=== PATIENT | female | born 1980 | race Caucasian/White ===

== ENCOUNTER 2016-11-26 10:12 | Inpatient (IN) | payer BC ==
[~2016-11-26] VITALS: Ht 154.9 cm; Wt 63.5 kg
[2016-11-26 10:50] VITALS: BP 118/71
[2016-11-26] MEDS ORDERED: NKM (10:52)
[2016-11-26 13:17] LABS: ALANINE AMINOTRANSFERASE 47 U/L (3-33); ALBUMIN/GLOBULIN RATIO 1.2 (1.0-2.7); ANION GAP 16 (5-15); ASPARTATE AMINO TRANSFERASE 17 U/L (5-40); CALCIUM 9.6 mg/dL (8.6-10.2); CARBON DIOXIDE 24 mEQ/L (20-30); CHLORIDE 99 mEQ/L (98-107); CREATININE 0.6 mg/dL (0.5-0.9); GLOMERULAR FILTRATION RATE > 60 mL/min (>60); HEMOLYSIS 1; POTASSIUM 4.2 mEQ/L (3.4-4.9); SODIUM 139 mEQ/L (135-145); TOTAL PROTEIN 7.5 g/dL (6.6-8.7)
[2016-11-26 13:24] LABS: APPEARANCE,URINE CLEAR; BASOPHILS % (AUTO) 1.5 % (0.0-2.0); EOSINOPHILS % (AUTO) 1.5 % (0.0-3.0); KETONES,URINE NEGATIVE (NEGATIVE); LEUKOCYTE ESTERASE ,URINE NEGATIVE (NEGATIVE); MEAN CORPUSCULAR HEMOGLOBIN 32.4 PG (27.0-31.0); MEAN CORPUSCULAR HGB CONC 33.3 G/DL (32.0-36.0); MEAN CORPUSCULAR VOLUME 97 FL (80-99); MEAN PLATELET VOLUME 5.3 FL (6.5-10.1); MONOCYTES % (AUTO) 6.1 % (1.0-10.0); NITRITE,URINE NEGATIVE (NEGATIVE); PH,URINE 6.5 (4.5-8.0); PLATELET COUNT 625 K/UL (150-450); PROTEIN,URINE NEGATIVE (NEGATIVE); RED BLOOD COUNT 3.84 M/UL (4.20-5.40); RED CELL DISTRIBUTION WIDTH 11.2 % (11.6-14.8); UROBILINOGEN,URINE NORMAL MG/DL (0.0-1.0); WHITE BLOOD COUNT 15.1 K/UL (4.8-10.8)
--- NOTE | 2016-11-26 13:25 | Emergency Room Report ---
History of Present Illness General Chief Complaint: General Complaint Source: Patient Present Illness HPI 36 Y[address] of [address] Martines sent for pre-op prep for operation tomorrow to evaluate left inner thigh/groin wound dehiscence s/p thigh lift, tummy tuck on Nov 14. Patient endorses "small" amount of pus, denies fever/chills. Was told by Dr Rocha to come to [facility] [place]. Dr Cook to admit. Patient denies other medical problems. Allergies: Coded Allergies: No Known Allergies (Unverified , 11/26/16) Patient History Past Medical History: none Past Surgical History: none, other - see HPI Pertinent Family History: none Social History: Denies: alcohol use, drug use, smoking Last Menstrual Period: 11/04/2016 Now: No Immunizations: UTD Reviewed Nursing Documentation: PMH: Agreed, PSxH: Agreed Nursing Documentation-PMH Past Medical History: No History, Except For Review of Systems All Other Systems: negative except mentioned in HPI Physical Exam Vital Signs Date Time Temp Pulse Resp B/P Pulse Ox O2 Delivery O2 Flow Rate FiO2 11/26/16 10:46 98.6 68 16 118/71 98 Room Air Sp02 EP Interpretation: reviewed, normal General Appearance: normal inspection, well appearing, no apparent distress, alert, GCS 15, non-toxic Head: normocephalic, atraumatic Eyes: bilateral eye EOMI, bilateral eye PERRL ENT: normal ENT inspection, hearing grossly normal, normal voice Neck: normal inspection, full range of motion, supple, no bony tend Respiratory: normal inspection, lungs clear, normal breath sounds, no respiratory distress, no retraction, no wheezing Cardiovascular #1: regular rate, rhythm, no edema Gastrointestinal: normal inspection, normal bowel sounds, non tender, soft, no guarding, no hernia Genitourinary: no CVA tenderness Musculoskeletal: normal inspection, back normal, normal range of motion, Royal' s Sign negative Neurologic: normal inspection, alert, oriented x3, responsive, paper coater III-XII nml as tested, motor strength/tone normal, speech normal Psychiatric: normal inspection, judgement/insight normal, mood/affect normal Skin: other - Left groin: dehiscence of surgical site. No obvious pus drainage. Suprapubic area and right groin surgical scars with healing well, no dehiscence of sutures Medical Decision Making Diagnostic Impression: Primary Impression: Wound dehiscence, surgical Qualified Codes: T81.31XA - Disruption of external operation (surgical) wound , not elsewhere classified, initial encounter ER Course 36 YOF here for medical clearance/pre-op prep for left groin surgical scar wound dehiscence. VSS. Afebrile. No systemic illness Labs: Leuks 15k Abx Vanc and Rocephin given empirically Blood Cx pending Endorsed to hospitalist Dr Cook at 124pm for med/surg admission Last Vital Signs Date Time Temp Pulse Resp B/P Pulse Ox O2 Delivery O2 Flow Rate FiO2 11/26/16 10:46 98.6 68 16 118/71 98 Room Air Status: improved Disposition: ADMITTED INPATIENT Referrals: NON PHYSICIAN (PCP) GAIL REAGAN M.D. Nov 26, 2016 13:25
[2016-11-26 13:27] LABS: CKMB < 1.5 ng/mL (< 3.8)
[2016-11-26 13:34] LABS: INR 1.1 (0.9-1.1); PROTHROMBIN TIME 10.8 SEC (9.30-11.50)
--- NOTE | 2016-11-26 13:57 | Diagnostic Imaging Report ---
Indication: Chest pain Technique: One view of the chest Comparison: none Findings: Lungs and pleural spaces are clear. Heart size is normal. Impression: No acute process
[2016-11-26] MEDS ORDERED: Vancomycin 1 GM in NS 275 ML IVPB ONE (14:00)
[2016-11-26] MEDS ORDERED: cefTRIAXone 1 GM in NS 55 ML IVPB ONE (14:00)
[2016-11-26] MEDS ORDERED: Vancomycin 1gm inj IVPB ONE (14:07)
[2016-11-26] MEDS ORDERED: NS 55 ML IV ONE (14:08)
[2016-11-26] MEDS ORDERED: Tubing IV Cassette IV ONE (14:08)
[2016-11-26] MEDS ORDERED: NS 275 ML ONE (14:08)
[2016-11-26] MEDS ORDERED: Miralax 17gm pkt ORAL PRN (14:15)
[2016-11-26] MEDS ORDERED: Mylanta II UD 30ml ORAL PRN (14:15)
[2016-11-26] MEDS ORDERED: Morphine Sulfate 4mg/ml Inj IVP PRN (14:15)
[2016-11-26] MEDS ORDERED: Morphine Sulfate 2mg/ml Inj IVP PRN (14:15)
[2016-11-26] MEDS ORDERED: LORazepam 1mg tab ORAL PRN (14:15)
--- NOTE | 2016-11-26 14:19 | History and Physical ---
History of Present Illness General Date patient seen: Nov 26, 2016 Time patient seen: 14:09 Reason for Hospitalization: General Complaint Present Illness HPI 36 y/o female with hx of recent plastic surgery (tummy tuck and thigh lift) more than a week ago, had been doing well until last night, when she noticed her surgical wound had opened. No fevers/chills, however has considerable pain, and unable to treat the pain at home. She notified her surgeon who told her to go to the ED. She is able to run miles without chest pain or dyspnea, no complications from her recent surgeries. Allergies: Coded Allergies: No Known Allergies (Unverified , 11/26/16) Medication History Scheduled No Known Medications* (NKM - No Known Medications*), 0 ., (Reported) Patient History History Provided By: Patient Healthcare decision maker Resuscitation status Advanced Directive on File Social History Social History: (1) No significant social history (2) Family history in first degree relatives is unremarkable Review of Systems Constitutional: Denies: chills, fever, malaise, no symptoms, other, see HPI, sweats, weakness Eye: Denies: acuity changes, blurred vision, discharge, double vision, eye pain , no symptoms, nose congestion, nose pain, other, see HPI, tearing ENT: Denies: ear discharge, ear pain, hearing loss, mouth pain, nasal discharge , no symptoms, nose congestion, nose pain, other, see HPI, throat pain, throat swelling Respiratory: Denies: TURNER, cough, no symptoms, orthopnea, other, see HPI, shortness of breath, sputum, stridor, wheezing Cardiovascular: Denies: PND, chest pain, edema, no symptoms, other, palpitations, see HPI, syncope Gastrointestinal: Denies: abdominal pain, constipation, diarrhea, hematemesis, melena, nausea, no symptoms, other, see HPI, vomiting Genitourinary: Reports: pain Musculoskeletal: Reports: muscle pain Skin: Reports: lesions Psychiatric: Denies: HI, SI, anxiety, depressed feelings, emotional problems, hallucinations, no symptoms, other, prior hx, see HPI Neurological: Denies: dizziness, focal weakness, headache, no symptoms, numbness, other, paresthesia, see HPI, seizure, syncope, tingling, tremors Endocrine: Denies: excessive sweating, flushing, increased thirst, increased urine, intolerance to temperature, no symptoms, other, see HPI, unexplained weight loss Hematologic/Lymphatic: Denies: anemia, blood clots, diathesis, easy bleeding, easy bruising, no symptoms, other, see HPI, swollen glands Physical Exam General Appearance: WD/WN, no apparent distress, alert Lines, tubes and drains: peripheral HEENT: normocephalic, atraumatic, anicteric, mucous membranes moist Neck: non-tender, normal alignment, supple, normal inspection Respiratory/Chest: chest wall non-tender, lungs clear, normal breath sounds, no respiratory distress, no accessory muscle use Cardiovascular/Chest: normal peripheral pulses, normal rate, regular rhythm, no gallop/murmur Abdomen: normal bowel sounds, non tender, soft Extremities: other - large wound on upper L thigh Skin Exam: normal pigmentation, warm/dry Neurologic: alert, oriented x 3, responsive, normal mood/affect Last 24 Hour Vital Signs Date Time Temp Pulse Resp B/P Pulse Ox O2 Delivery O2 Flow Rate FiO2 11/26/16 10:46 98.6 68 16 118/71 98 Room Air Laboratory Tests Test 11/26/16 11:35 White Blood Count 15.1 K/UL (4.8-10.8) H Red Blood Count 3.84 M/UL (4.20-5.40) L Hemoglobin 12.4 G/DL (12.0-16.0) Hematocrit 37.4 % (37.0-47.0) Mean Corpuscular Volume 97 FL (80-99) Mean Corpuscular Hemoglobin 32.4 PG (27.0-31.0) H Mean Corpuscular Hemoglobin Concent 33.3 G/DL (32.0-36.0) Red Cell Distribution Width 11.2 % (11.6-14.8) L Platelet Count 625 K/UL (150-450) H Mean Platelet Volume 5.3 FL (6.5-10.1) L Neutrophils (%) (Auto) 75.0 % (45.0-75.0) Lymphocytes (%) (Auto) 16.0 % (20.0-45.0) L Monocytes (%) (Auto) 6.1 % (1.0-10.0) Eosinophils (%) (Auto) 1.5 % (0.0-3.0) Basophils (%) (Auto) 1.5 % (0.0-2.0) Prothrombin Time 10.8 SEC (9.30-11.50) Prothromb Time International Ratio 1.1 (0.9-1.1) Activated Partial Thromboplast Time 26 SEC (23-33) Urine Color Pale yellow Urine Appearance Clear Urine pH 6.5 (4.5-8.0) Urine Specific [place] 1.005 (1.005-1.035) Urine Protein Negative (NEGATIVE) Urine Glucose (UA) Negative (NEGATIVE) Urine Ketones Negative (NEGATIVE) Urine Occult Blood Negative (NEGATIVE) Urine Nitrite Negative (NEGATIVE) Urine Bilirubin Negative (NEGATIVE) Urine Urobilinogen Normal MG/DL (0.0-1.0) Urine Leukocyte Esterase Negative (NEGATIVE) Urine HCG, Qualitative Negative Sodium Level 139 mEQ/L (135-145) Potassium Level 4.2 mEQ/L (3.4-4.9) Chloride Level 99 mEQ/L (98-107) Carbon Dioxide Level 24 mEQ/L (20-30) Anion Gap 16 (5-15) H Blood Urea Nitrogen 16 mg/dL (7-23) Creatinine 0.6 mg/dL (0.5-0.9) Estimat Glomerular Filtration Rate > 60 mL/min (>60) Glucose Level 97 mg/dL (74-106) Lactic Acid Level 0.50 mmol/L (0.66-2.22) L Calcium Level 9.6 mg/dL (8.6-10.2) Total Bilirubin 0.3 mg/dL (0.0-1.2) Aspartate Amino Transf (AST/SGOT) 17 U/L (5-40) Alanine Aminotransferase (ALT/SGPT) 47 U/L (3-33) H Alkaline Phosphatase 87 U/L (35-104) Creatine Kinase MB < 1.5 ng/mL (< 3.8) Total Protein 7.5 g/dL (6.6-8.7) Albumin 4.1 g/dL (3.5-5.2) Globulin 3.4 g/dL Albumin/Globulin Ratio 1.2 (1.0-2.7) Height (Feet): 5 Height (Inches): 1.00 Weight (Pounds): 140 Medications Current Medications Medications (Trade) Dose Ordered Sig/Javier Route PRN Reason Start Time Stop Time Status Last Admin Dose Admin Acetaminophen (Tylenol) 650 mg Q4H PRN ORAL Mild Pain (Pain Scale 1-3) 11/26/16 14:15 12/26/16 14:14 UNV Acetaminophen (Tylenol) 650 mg Q4H PRN ORAL fever 11/26/16 14:15 12/26/16 14:14 UNV Al Hydroxide/Mg Hydroxide (Mylanta II) 30 ml Q6H PRN ORAL dyspepsia 11/26/16 14:15 12/26/16 14:14 UNV Bisacodyl (Dulcolax) 10 mg HSPRN PRN RECTAL Constipation 11/26/16 14:15 12/26/16 14:14 UNV Ceftriaxone Sodium 1 gm/ Sodium Chloride 55 ml @ 110 mls/hr ONCE ONCE IVPB 11/26/16 14:00 11/26/16 14:29 Ceftriaxone Sodium (Rocephin) 1 gm Q12HR IVP 11/26/16 21:00 12/03/16 20:59 UNV Dextrose (Dextrose 50%) STAT PRN IV Hypoglycemia 11/26/16 14:15 12/26/16 14:14 UNV Dextrose/Sodium Chloride (D5ns) 1,000 ml @ 75 mls/hr [id number] IV 11/27/16 00:00 12/27/16 00:00 UNV Diphenhydramine HCl (Benadryl) 25 mg Q6H PRN ORAL Itching/Pruritis 11/26/16 14:15 12/26/16 14:14 UNV Docusate Sodium (Colace) 100 mg EVERY 12 HOURS ORAL 11/26/16 21:00 12/26/16 20:59 UNV Lorazepam (Ativan) 1 mg Q4H PRN ORAL For Anxiety 11/26/16 14:15 12/03/16 14:14 UNV Magnesium Hydroxide (Mom) 30 ml HSPRN PRN ORAL Constipation 11/26/16 14:15 12/26/16 14:14 UNV Morphine Sulfate (Morphine Sulfate) 2 mg Q4HR PRN IVP Moderate Pain (Pain Scale 4-6) 11/26/16 14:15 12/03/16 14:14 UNV Morphine Sulfate (Morphine Sulfate) 4 mg Q4HR PRN IVP Severe Pain (Pain Scale 7-10) 11/26/16 14:15 12/03/16 14:14 UNV Ondansetron HCl (Zofran) 4 mg Q6H PRN IVP Nausea & Vomiting 11/26/16 14:15 12/26/16 14:14 UNV Polyethylene Glycol (Miralax) 17 gm HSPRN PRN ORAL Constipation 11/26/16 14:15 12/26/16 14:14 UNV Temazepam (Restoril) 15 mg HSPRN PRN ORAL Insomnia 11/26/16 14:15 12/03/16 14:14 UNV Vancomycin HCl (Vanco rx to dose) 1 ea DAILY PRN MISC Per rx protocol 11/26/16 14:15 12/26/16 14:14 UNV Vancomycin HCl 1 gm/Sodium Chloride 275 ml @ 183.708 mls/hr ONCE ONCE IVPB 11/26/16 14:00 11/26/16 15:29 Assessment/Plan Problem List: (1) Wound dehiscence, surgical Assessment & Plan: Admit to inpatient. Blood cultures Start broad spectrum IV abx Plastic surgery consult f/u wound culture Pain control Supp care If patient is required to have surgery, based on the patient's medical history, and other available ancillary data, the patient is a LOW risk for an INTERMEDIATE risk procedure. Per the most recent ACC/AHA guidelines, the patient does not need any further cardiopulmonary testing prior to the procedure and there do not appear to be any clear medical contraindications to proceeding with the proposed procedure. ICD Codes: T81.31XA - Disruption of external operation (surgical) wound, not elsewhere classified, initial encounter SNOMED: [id number] Qualifiers: Qualified Codes: T81.31XA - Disruption of external operation (surgical) wound, not elsewhere classified, initial encounter COLT GARCIA Nov 26, 2016 14:18
[2016-11-26 16:00] VITALS: BP 119/74
[2016-11-26] MEDS ORDERED: Norco 5mg/325mg tab ORAL PRN (16:45)
[2016-11-26 20:00] VITALS: BP 109/60
[2016-11-26] MEDS: Docusate 100mg cap ORAL SCH (20:15)
[2016-11-26] MEDS ORDERED: Milk of Magnesia 30ml Ud ORAL PRN (21:00)
[2016-11-27] VITALS (14 sets, daily range): BP systolic 97–136; BP diastolic 60–89
[2016-11-27] MEDS: D5NS 1,000 ML IV SCH ×2 (01:47→12:58)
[2016-11-27] MEDS: Vancomycin 750mg/D5W 275ml IVPB SCH ×4 (01:47→13:38)
[2016-11-27] MEDS ORDERED: Bacitracin 50000 Units Vial ONE (08:27)
[2016-11-27] MEDS ORDERED: Propofol 10mg/ml 20ml IV ONE ×2 (08:27→08:45)
[2016-11-27] MEDS ORDERED: Lidocaine 1% 10mg/ml/Epi 0.005mg/ml 30ml vial INJ ONE ×2 (08:27→09:30)
--- NOTE | 2016-11-27 08:42 | Pre-Procedure Note/Attestation ---
Pre-Procedure Note/Attestation Complete Prior to Procedure Planned Procedure: bilateral Procedure Narrative: Closure of bilateral thigh wounds and lower abdominal wound Attestation I attest that I discussed the nature of the procedure; its benefits; risks and complications; and alternatives (and the risks and benefits of such alternatives ), prior to the procedure, with the patient (or the patient's legal veterans employment representative). I attest that, if there was a reasonable possibility of needing a blood transfusion, the patient (or the patient's legal veterans employment representative) was given the [facility] standardized written summary, pursuant to the Kt Ronald Blood Safety Act ([place] Health and Safety Code # 1645, as amended). I attest that I re-evaluated the patient just prior to the surgery and that there has been no change in the patient's H&P, except as documented below: MERCEDEZ CALDERÓN Nov 27, 2016 08:42
--- NOTE | 2016-11-27 08:43 | Operative Note - PDOC ---
Operative Note Operative Note Pre-op Diagnosis: Open thigh and abdominal wounds Procedure: Closure of bilateral thigh wounds and lower abdominal wound Post-op Diagnosis: same as pre-op Surgeon: Jose J Anesthesia: general Specimen: none Complications: none Condition: stable Estimated Blood Loss: minimal Drains: none MERCEDEZ CALDERÓN Nov 27, 2016 08:43
[2016-11-27] MEDS ORDERED: Sterile Water Irrig 1000ml IRRIG ONE (08:45)
[2016-11-27] MEDS ORDERED: NS Irrig 1000ml ONE (08:45)
[2016-11-27] MEDS ORDERED: Ketorolac 30mg Inj ONE (08:45)
[2016-11-27] MEDS ORDERED: Midazolam 2mg/2ml Inj ONE (08:45)
[2016-11-27] MEDS ORDERED: LR 1000ml ONE (08:45)
[2016-11-27] MEDS ORDERED: fentaNYL 100 mcg/2 mL IV ONE (08:45)
[2016-11-27] MEDS ORDERED: Dexamethasone 4mg/ml vial ONE (08:45)
[2016-11-27] MEDS: Docusate 100mg cap ORAL SCH ×2 (09:00→20:55)
[2016-11-27] MEDS ORDERED: Transderm Scop 1.5mg TDERMAL ONE (09:00)
[2016-11-27] MEDS ORDERED: Bacitracin Oint 15gm Tube TOPIC ONE (09:04)
[2016-11-27] MEDS ORDERED: LR 1000ml 1,000 ML IVLG SCH (09:31)
--- NOTE | 2016-11-27 09:31 | Anethesia Preoperative Eval ---
Anesthesia Pre-op PMH/ROS General Date of Evaluation: Nov 27, 2016 Time of Evaluation: 08:30 Anesthesiologist: Deidre ASA Score: ASA 2 Mallampati Score Class I : Soft palate, uvula, fauces, pillars visible Class II: Soft palate, uvula, fauces visible Class III: Soft palate, base of uvula visible Class IV: Only hard plate visible Mallampati Classification: Class II Surgeon: Jose J Diagnosis: Groin wounds dehiesence Surgical Procedure: Revision and closure of bilateral groin wounds Anesthesia History: PONV Social History: smoking - h/o Family History: no anesthesia problems Allergies: Coded Allergies: No Known Allergies (Unverified , 11/26/16) Medications: see eMAR Past Medical History Cardiovascular: Denies: CAD, HTN, SD, arrhythmia, other, valve dz Pulmonary: Denies: COPD, DERRELL, asthma, other Gastrointestinal/Genitourinary: Reports: GERD, other - massive weight loss, Denies: CRI, ESRD Neurologic/Psychiatric: Denies: CVA, TIA, dementia, depression/anxiety, other Endocrine: Denies: DM, hypothyroidism, other, steroids HEENT: Denies: MOAPA (L), MOAPA (R), cataract (L), cataract (R), glaucoma, other Hematology/Immune: Denies: DVT, anemia, bleeding disorder, other Musculoskeletal/Integumentary: Reports: other - s/p mutiple ortho Sx for severe trauma, Denies: DDD, DJD, OA, RA, edema Other: obesity - h/o PMH Narrative: as above PSxH Narrative: Multiple ORIF, Abdominoplasty Anesthesia Pre-op Phys. Exam Physician Exam Last Vital Signs Date Time Temp Pulse Resp B/P Pulse Ox O2 Delivery O2 Flow Rate FiO2 11/27/16 08:00 97.9 78 20 107/76 98 Room Air Constitutional: NAD Neurologic: CN 2-12 intact Cardiovascular: RRR Respiratory: CTA Gastrointestinal: other - s/p abdominoplasty Airway Exam Mallampati Score: Class II MO: full Neck: flexible ROM: full Teeth: intact Dentures: no lower, no upper Anesthesia Pre-op A/P Labs Hematology Test 11/26/16 11:35 White Blood Count 15.1 K/UL (4.8-10.8) H Red Blood Count 3.84 M/UL (4.20-5.40) L Hemoglobin 12.4 G/DL (12.0-16.0) Hematocrit 37.4 % (37.0-47.0) Mean Corpuscular Volume 97 FL (80-99) Mean Corpuscular Hemoglobin 32.4 PG (27.0-31.0) H Mean Corpuscular Hemoglobin Concent 33.3 G/DL (32.0-36.0) Red Cell Distribution Width 11.2 % (11.6-14.8) L Platelet Count 625 K/UL (150-450) H Mean Platelet Volume 5.3 FL (6.5-10.1) L Neutrophils (%) (Auto) 75.0 % (45.0-75.0) Lymphocytes (%) (Auto) 16.0 % (20.0-45.0) L Monocytes (%) (Auto) 6.1 % (1.0-10.0) Eosinophils (%) (Auto) 1.5 % (0.0-3.0) Basophils (%) (Auto) 1.5 % (0.0-2.0) Coagulation Test 11/26/16 11:35 Prothrombin Time 10.8 SEC (9.30-11.50) Prothromb Time International Ratio 1.1 (0.9-1.1) Activated Partial Thromboplast Time 26 SEC (23-33) Chemistry Test 11/26/16 11:35 Sodium Level 139 mEQ/L (135-145) Potassium Level 4.2 mEQ/L (3.4-4.9) Chloride Level 99 mEQ/L (98-107) Carbon Dioxide Level 24 mEQ/L (20-30) Anion Gap 16 (5-15) H Blood Urea Nitrogen 16 mg/dL (7-23) Creatinine 0.6 mg/dL (0.5-0.9) Estimat Glomerular Filtration Rate > 60 mL/min (>60) Glucose Level 97 mg/dL (74-106) Lactic Acid Level 0.50 mmol/L (0.66-2.22) L Calcium Level 9.6 mg/dL (8.6-10.2) Total Bilirubin 0.3 mg/dL (0.0-1.2) Aspartate Amino Transf (AST/SGOT) 17 U/L (5-40) Alanine Aminotransferase (ALT/SGPT) 47 U/L (3-33) H Alkaline Phosphatase 87 U/L (35-104) Creatine Kinase MB < 1.5 ng/mL (< 3.8) Total Protein 7.5 g/dL (6.6-8.7) Albumin 4.1 g/dL (3.5-5.2) Globulin 3.4 g/dL Albumin/Globulin Ratio 1.2 (1.0-2.7) Urine Test Test 11/26/16 11:35 Urine HCG, Qualitative Negative Studies Pre-op Studies: EKG - NSR Risk Assessment & Plan Assessment: ASA 2 Plan: GA with LMA PONV prevention Status Change Before Surgery: No Pre-Antibiotics Drug: Ancef 1gr. Given Within 1 Hr of Incision: Yes Time Given: 09:03 TY ZACARIAS M.D. Nov 27, 2016 09:31
[2016-11-27] MEDS ORDERED: Hydromorphone 0.5mg/0.5ml inj IVP PRN ×2 (09:45→13:00)
[2016-11-27] MEDS ORDERED: fentaNYL 100 mcg/2 mL IV PRN (09:45)
[2016-11-27] MEDS ORDERED: Metoclopramide 10mg/2ml Inj IVP PRN (09:45)
[2016-11-27] MEDS ORDERED: DiphenhydrAMINE 50mg/ml Inj IVP PRN ×2 (09:45→13:00)
[2016-11-27] MEDS ORDERED: Meperidine 25mg/ml Inj IV PRN (09:45)
[2016-11-27] MEDS ORDERED: Ketorolac 30mg Inj IV PRN (09:45)
[2016-11-27] MEDS ORDERED: Surgicel 4in x 8in TOPIC ONE (10:07)
--- NOTE | 2016-11-27 11:59 | Immediate Post-Op Evaluation ---
Immediate Post-Op Evalulation Immediate Post-Op Evalulation Procedure: Revision and closure of bilateral groin and abdominal wounds Date of Evaluation: Nov 27, 2016 Time of Evaluation: 11:06 IV Fluids: 1200 Blood Products: none Estimated Blood Loss: 50 Urinary Output: none Blood Pressure Systolic: 125 Blood Pressure Diastolic: 58 Pulse Rate: 74 Respiratory Rate: 22 O2 Sat by Pulse Oximetry: 99 Temperature (Fahrenheit): 98.1 Pain Score (1-10): 2 Nausea: No Vomiting: No Complications none Patient Status: awake, patent, none Hydration Status: adequate TY ZACARIAS M.D. Nov 27, 2016 11:59
[2016-11-27] MEDS ORDERED: cefTRIAXone 1gm/D5W 55ml IVPB SCH ×2 (14:00)
[2016-11-27 14:02] LABS: MEAN CORPUSCULAR HEMOGLOBIN 33.7 PG (27.0-31.0); MEAN CORPUSCULAR HGB CONC 35.1 G/DL (32.0-36.0); MEAN CORPUSCULAR VOLUME 96 FL (80-99); MEAN PLATELET VOLUME 5.7 FL (6.5-10.1); PLATELET COUNT 555 K/UL (150-450); RED BLOOD COUNT 3.22 M/UL (4.20-5.40); WHITE BLOOD COUNT 20.7 K/UL (4.8-10.8)
[2016-11-27 14:18] LABS: ANION GAP 13 (5-15); CALCIUM 8.8 mg/dL (8.6-10.2); CARBON DIOXIDE 22 mEQ/L (20-30); CHLORIDE 102 mEQ/L (98-107); CREATININE 0.7 mg/dL (0.5-0.9); GLOMERULAR FILTRATION RATE > 60 mL/min (>60); HEMOLYSIS 0; SODIUM 137 mEQ/L (135-145)
[2016-11-27] MEDS: HYDROmorphone 1mg/ml Carpuject IVP PRN ×2 (14:29→18:40)
[2016-11-27 15:04] LABS: BAND NEUTROPHILS % (MANUAL) 0 % (0-8); BASOPHILS % (MANUAL) 0 % (0-2); EOSINOPHILS % (MANUAL) 0 % (0-3); LYMPHOCYTES % (MANUAL) 3 % (20-45); NEUTROPHILS % (MANUAL) 95 % (45-75); PLATELET ESTIMATE INCREASED; TOTAL CELLS COUNTED 100
[2016-11-27 15:05] LABS: ANISOCYTOSIS 1+; HYPOCHROMASIA 1+; PLATELET MORPHOLOGY NORMAL
--- NOTE | 2016-11-27 15:29 | Operative Note - Dictated ---
DATE OF OPERATION: 11/27/2016 PREOPERATIVE DIAGNOSES: 1. Dehiscence of bilateral medial thigh lift wounds. 2. Small dehiscence of lower abdominal incision. POSTOPERATIVE DIAGNOSES: 1. Dehiscence of bilateral medial thigh lift wounds. 2. Small dehiscence of lower abdominal incision. PROCEDURES: 1. Debridement and complex closure of lower abdominal incision. 2. Debridement and complex closure of right medial thigh incision. 3. Debridement of left medial thigh incision. 4. Elevation of fasciocutaneous flaps x2 for closure of the left thigh wound. SURGEON: Yonatan Lux M.D. SUPERVISOR PHOSPHORUS PROCESSING: None. ANESTHESIA: General. COMPLICATIONS: None. DISPOSITION: Stable to the recovery room. INDICATIONS FOR SURGERY: This is a 36-year-old female, who is now approximately two weeks postop from an abdominoplasty as well as bilateral medial thigh lift who had been doing well, however, presented to the emergency room with evidence of a wound dehiscence to bilateral thighs as well as her abdomen. She also had some evidence of cellulitis several days ago in her left thigh wound, for which she was on antibiotics; however, given the dehiscence and the low-grade infection in the wound, I felt that it was appropriate for the patient to be brought back to the operating room for debridement, re-closure, and IV antibiotics. She understood the risks and benefits of surgery and agreed to proceed. DETAILS OF THE OPERATION: The patient was brought to the operating room and laid supine on the operating room table. After induction of anesthesia, she was placed in lithotomy position. Her lower abdomen and bilateral groins and thighs were prepped and draped in a sterile and usual fashion. We first began by delineating the area on the abdomen, which required debridement. This was in the lower mid aspect of the of the lower abdominal incision and measured approximately 4 x 2 cm. An elliptical area was designed and a #15 blade was then used to excise this area down to healthy subcutaneous tissue. The wound was then copiously irrigated and after the debridement, the wound was closed in a complex closure fashion with 0 and 2-0 Vicryl sutures, and a running 3-0 Prolene was used to close the skin that was further reinforced by interrupted 2-0 Prolene sutures. In a similar fashion, the right thigh wound was approached as an elliptical type of excision of the area that needed to be debrided. This was done down to healthy tissue. The wound, once it was debrided, was then closed after irrigation and debridement in a complex closure fashion using 0 and 2-0 Vicryl, and a running 3-0 Prolene was used to close the skin. The left thigh wound was significantly larger, measured approximately 8 x 6 cm. This required a T-shape type of excision of the nonviable tissue. This was debrided down to healthy tissue; however, the wound could not be closed primarily. As such, the medial thigh flaps that had been previously elevated during our initial operation had to be re-elevated to allow for readvancement and closure, so a superior and inferior fasciocutaneous thigh flaps based off of perforators of the superficial femoral artery were elevated to allow for a tension-free repair. This was done following hemostasis that was achieved following the irrigation of the wound with pulse lavage. The flaps were then brought together and inset to the opposing groin edge of the wound using #0 and 2-0 Vicryl sutures and the skin was then closed with a running 3-0 Prolene stitch and further reinforced by interrupted 2-0 Prolene. The patient tolerated the procedure well. There were no complications. Yonatan Lux M.D. DR: AGGIE JOB#: [id number] CC:
[2016-11-27] MEDS: cefTRIAXone 1gm/D5W 55ml IVPB SCH ×2 (16:09)
[2016-11-27] MEDS: ceFAZolin sod 1 GM in D5W 55 ML IV SCH (17:24)
--- NOTE | 2016-11-27 18:48 | General Progress Note ---
Assessment/Plan Problem List: (1) Wound dehiscence, surgical Assessment & Plan: Admit to inpatient. Blood cultures Start broad spectrum IV abx Plastic surgery consult f/u wound culture Pain control Supp care If patient is required to have surgery, based on the patient's medical history, and other available ancillary data, the patient is a LOW risk for an INTERMEDIATE risk procedure. Per the most recent ACC/AHA guidelines, the patient does not need any further cardiopulmonary testing prior to the procedure and there do not appear to be any clear medical contraindications to proceeding with the proposed procedure. ICD Codes: T81.31XA - Disruption of external operation (surgical) wound, not elsewhere classified, initial encounter SNOMED: [id number] Qualifiers: Qualified Codes: T81.31XA - Disruption of external operation (surgical) wound, not elsewhere classified, initial encounter Subjective Date patient seen: Nov 27, 2016 Time patient seen: 18:47 ROS Limited/Unobtainable: No Allergies: Coded Allergies: No Known Allergies (Unverified , 11/26/16) Objective Last 24 Hour Vital Signs Date Time Temp Pulse Resp B/P Pulse Ox O2 Delivery O2 Flow Rate FiO2 11/27/16 16:00 97.0 63 18 111/75 97 Room Air 18 11/27/16 12:30 98.0 60 22 112/70 100 Nasal Cannula 3.0 11/27/16 12:15 83 19 115/73 100 Nasal Cannula 3.0 11/27/16 12:14 98.0 11/27/16 12:02 98.0 11/27/16 12:00 60 21 111/76 100 Nasal Cannula 3.0 11/27/16 11:59 74 22 99 11/27/16 11:45 75 17 124/77 100 Nasal Cannula 3.0 11/27/16 11:35 75 20 124/83 100 Nasal Cannula 3.0 11/27/16 11:20 78 14 129/84 100 Nasal Cannula 3.0 11/27/16 11:12 77 14 136/85 100 Nasal Cannula 3.0 11/27/16 11:07 76 22 120/70 100 Simple Mask 6.0 11/27/16 11:02 98.8 97 13 128/89 100 Simple Mask 6.0 11/27/16 08:00 97.9 78 20 107/76 98 Room Air 11/27/16 04:00 97.7 61 18 119/71 99 Room Air 11/27/16 00:00 97.9 63 18 105/68 98 Room Air 11/26/16 21:15 97.9 11/26/16 20:00 98.2 75 17 109/60 96 Room Air Intake and Output 11/26/16 11/27/16 19:00 07:00 Intake Total 55 ml 735 ml Balance 55 ml 735 ml Intake Oral 360 ml IV Total 55 ml 375 ml # Voids 1 4 Laboratory Tests 11/27/16 13:30: White Blood Count 20.7H, Red Blood Count 3.22L, Hemoglobin 10.8L, Hematocrit 30.9L, Mean Corpuscular Volume 96, Mean Corpuscular Hemoglobin 33.7H, Mean Corpuscular Hemoglobin Concent 35.1, Red Cell Distribution Width 11.0L, Platelet Count 555H, Mean Platelet Volume 5.7L, Neutrophils (%) (Auto) , Lymphocytes (%) (Auto) , Monocytes (%) (Auto) , Eosinophils (%) (Auto) , Basophils (%) (Auto) , Differential Total Cells Counted 100, Neutrophils % ( Manual) 95H, Lymphocytes % (Manual) 3L, Monocytes % (Manual) 2, Eosinophils % ( Manual) 0, Basophils % (Manual) 0, Band Neutrophils 0, Platelet Estimate IncreasedH, Platelet Morphology Normal, Hypochromasia 1+, Anisocytosis 1+, Sodium Level 137, Potassium Level 5.0H, Chloride Level 102, Carbon Dioxide Level 22, Anion Gap 13, Blood Urea Nitrogen 13, Creatinine 0.7, Estimat Glomerular Filtration Rate > 60, Glucose Level 132H, Calcium Level 8.8 Height (Feet): 5 Height (Inches): 1.00 Weight (Pounds): 140 COLT GARCIA Nov 27, 2016 18:48
--- NOTE | 2016-11-27 18:50 | General Progress Note ---
Assessment/Plan Problem List: (1) Wound dehiscence, surgical Assessment & Plan: - s/p debridement of leg/tight - follow WBC Post operative recommendations include: - encourage mobilization/ambulation - encourage incentive spirometry to optimize pulmonary hygiene - DVT/GI prophylaxis as appropriate - ctm CBC and hemodynamics - ctm electrolytes, adjust/replete prn - PT/OT/ST, if indicated - pain control, supportive care, bowel regimen - DC planning ICD Codes: T81.31XA - Disruption of external operation (surgical) wound, not elsewhere classified, initial encounter SNOMED: [id number] Qualifiers: Qualified Codes: T81.31XA - Disruption of external operation (surgical) wound, not elsewhere classified, initial encounter Subjective Date patient seen: Nov 27, 2016 Time patient seen: 18:48 ROS Limited/Unobtainable: No Allergies: Coded Allergies: No Known Allergies (Unverified , 11/26/16) Subjective s/p debridement of leg/thigh, no periop or postop complications, pain controlled , no chest pain or dyspnea Objective Last 24 Hour Vital Signs Date Time Temp Pulse Resp B/P Pulse Ox O2 Delivery O2 Flow Rate FiO2 11/27/16 16:00 97.0 63 18 111/75 97 Room Air 18 11/27/16 12:30 98.0 60 22 112/70 100 Nasal Cannula 3.0 11/27/16 12:15 83 19 115/73 100 Nasal Cannula 3.0 11/27/16 12:14 98.0 11/27/16 12:02 98.0 11/27/16 12:00 60 21 111/76 100 Nasal Cannula 3.0 11/27/16 11:59 74 22 99 11/27/16 11:45 75 17 124/77 100 Nasal Cannula 3.0 11/27/16 11:35 75 20 124/83 100 Nasal Cannula 3.0 11/27/16 11:20 78 14 129/84 100 Nasal Cannula 3.0 11/27/16 11:12 77 14 136/85 100 Nasal Cannula 3.0 11/27/16 11:07 76 22 120/70 100 Simple Mask 6.0 11/27/16 11:02 98.8 97 13 128/89 100 Simple Mask 6.0 11/27/16 08:00 97.9 78 20 107/76 98 Room Air 11/27/16 04:00 97.7 61 18 119/71 99 Room Air 11/27/16 00:00 97.9 63 18 105/68 98 Room Air 11/26/16 21:15 97.9 11/26/16 20:00 98.2 75 17 109/60 96 Room Air Intake and Output 11/26/16 11/27/16 19:00 07:00 Intake Total 55 ml 735 ml Balance 55 ml 735 ml Intake Oral 360 ml IV Total 55 ml 375 ml # Voids 1 4 Laboratory Tests 11/27/16 13:30: White Blood Count 20.7H, Red Blood Count 3.22L, Hemoglobin 10.8L, Hematocrit 30.9L, Mean Corpuscular Volume 96, Mean Corpuscular Hemoglobin 33.7H, Mean Corpuscular Hemoglobin Concent 35.1, Red Cell Distribution Width 11.0L, Platelet Count 555H, Mean Platelet Volume 5.7L, Neutrophils (%) (Auto) , Lymphocytes (%) (Auto) , Monocytes (%) (Auto) , Eosinophils (%) (Auto) , Basophils (%) (Auto) , Differential Total Cells Counted 100, Neutrophils % ( Manual) 95H, Lymphocytes % (Manual) 3L, Monocytes % (Manual) 2, Eosinophils % ( Manual) 0, Basophils % (Manual) 0, Band Neutrophils 0, Platelet Estimate IncreasedH, Platelet Morphology Normal, Hypochromasia 1+, Anisocytosis 1+, Sodium Level 137, Potassium Level 5.0H, Chloride Level 102, Carbon Dioxide Level 22, Anion Gap 13, Blood Urea Nitrogen 13, Creatinine 0.7, Estimat Glomerular Filtration Rate > 60, Glucose Level 132H, Calcium Level 8.8 Height (Feet): 5 Height (Inches): 1.00 Weight (Pounds): 140 General Appearance: WD/WN, no apparent distress, alert EENT: PERRL/EOMI Neck: non-tender, normal alignment, supple Cardiovascular: normal peripheral pulses, normal rate, regular rhythm, no gallop/murmur Respiratory/Chest: chest wall non-tender, lungs clear, normal breath sounds, no respiratory distress, no accessory muscle use Abdomen: normal bowel sounds, non tender, soft Genitourinary/Rectal: other Extremities: normal range of motion, non-tender, other Neurologic: alert, oriented x 3, responsive, normal mood/affect Skin: normal pigmentation, warm/dry, no diaphoresis COLT GARCIA Nov 27, 2016 18:50
[2016-11-27] MEDS ORDERED: Zolpidem 5mg tab ORAL PRN (21:00)
[2016-11-28] VITALS: BP 98/62
[2016-11-28] MEDS: HYDROmorphone 1mg/ml Carpuject IVP PRN ×5 (00:11→21:01)
[2016-11-28] MEDS: ceFAZolin sod 1 GM in D5W 55 ML IV SCH (00:12)
[2016-11-28 01:17] LABS: MEAN CORPUSCULAR HEMOGLOBIN 32.6 PG (27.0-31.0); MEAN CORPUSCULAR HGB CONC 34.1 G/DL (32.0-36.0); MEAN CORPUSCULAR VOLUME 95 FL (80-99); MEAN PLATELET VOLUME 5.7 FL (6.5-10.1); PLATELET COUNT 540 K/UL (150-450); RED BLOOD COUNT 2.81 M/UL (4.20-5.40); RED CELL DISTRIBUTION WIDTH 11.2 % (11.6-14.8)
[2016-11-28] MEDS: Vancomycin 1250mg/D5W 275ml IVPB SCH ×4 (02:00→14:41)
[2016-11-28] MEDS ORDERED: Vancomycin 1gm inj IVPB ONE (02:23)
[2016-11-28] MEDS: D5NS 1,000 ML IV SCH ×2 (02:40→16:46)
[2016-11-28 04:00] VITALS: BP 95/58
[2016-11-28 08:00] VITALS: BP 101/60
[2016-11-28 08:10] LABS: BAND NEUTROPHILS % (MANUAL) 0 % (0-8); BASOPHILS % (MANUAL) 0 % (0-2); EOSINOPHILS % (MANUAL) 0 % (0-3); HYPOCHROMASIA 1+; LYMPHOCYTES % (MANUAL) 17 % (20-45); NEUTROPHILS % (MANUAL) 77 % (45-75); PLATELET ESTIMATE INCREASED; PLATELET MORPHOLOGY NORMAL; TOTAL CELLS COUNTED 100
--- NOTE | 2016-11-28 08:57 | General Progress Note ---
Progress Note Progress Note Pt seen and examined. POD # 1from reclosure of wounds. Doing well and pain is well controlled. WBC is elevated this AM. Cellulitis around abdominal incision is less. Given elevated WBC will continue on Vanco and repeat CBC in AM. MERCEDEZ Agrawal MD Nov 28, 2016 08:57
[2016-11-28] MEDS: Docusate 100mg cap ORAL SCH ×2 (09:41→20:07)
[2016-11-28] MEDS: Heparin 5000 units/ml inj SUBQ SCH ×2 (09:50→20:10)
--- NOTE | 2016-11-28 11:18 | 48 Hour Post Anesthesia Eval ---
Post Anesthesia Evaluation Procedure: Revision and closure of bilateral groin and abdominal wounds Date of Evaluation: Nov 28, 2016 Time of Evaluation: 07:10 Blood Pressure Systolic: 95 0: 58 Pulse Rate: 69 Respiratory Rate: 18 Temperature (Fahrenheit): 97.5 O2 Sat by Pulse Oximetry: 97 Airway: patent Nausea: No Vomiting: No Pain Intensity: 2 Hydration Status: adequate Cardiopulmonary Status: at baseline Mental Status/LOC: patient returned to baseline Post-Anesthesia Complications: 0 Follow-up care needed: N/A - further care as per primary team AARON CORREA M.D. Nov 28, 2016 11:18
[2016-11-28 12:00] VITALS: BP 98/58
--- NOTE | 2016-11-28 14:43 | General Progress Note ---
Assessment/Plan Problem List: (1) Wound dehiscence, surgical Assessment & Plan: - s/p debridement of leg/thigh POD#1 - follow WBC - encourage mobilization/ambulation - encourage incentive spirometry to optimize pulmonary hygiene - DVT/GI prophylaxis as appropriate - ctm CBC and hemodynamics - ctm electrolytes, adjust/replete prn - PT/OT/ST, if indicated - pain control, supportive care, bowel regimen - DC planning ICD Codes: T81.31XA - Disruption of external operation (surgical) wound, not elsewhere classified, initial encounter SNOMED: [id number] Qualifiers: Qualified Codes: T81.31XA - Disruption of external operation (surgical) wound, not elsewhere classified, initial encounter Subjective Date patient seen: Nov 28, 2016 Time patient seen: 14:42 ROS Limited/Unobtainable: No Allergies: Coded Allergies: No Known Allergies (Unverified , 11/26/16) Subjective s/p debridement of leg/thigh POD#1, no periop or postop complications, pain controlled, no chest pain or dyspnea Objective Last 24 Hour Vital Signs Date Time Temp Pulse Resp B/P Pulse Ox O2 Delivery O2 Flow Rate FiO2 11/28/16 12:00 98.1 68 20 98/58 100 Room Air 11/28/16 11:18 97.5 11/28/16 11:18 69 18 97 11/28/16 08:00 97.5 53 19 101/60 99 Room Air 11/28/16 04:00 97.7 69 18 95/58 97 Room Air 11/28/16 00:00 98.1 60 18 98/62 98 Room Air 11/27/16 20:00 98.1 66 17 97/60 96 Room Air 11/27/16 16:00 97.0 63 18 111/75 97 Room Air 18 Intake and Output 11/27/16 11/28/16 19:00 07:00 Intake Total 1300 ml 1080 ml Output Total 50 ml Balance 1250 ml 1080 ml Intake Oral 480 ml IV Total 1300 ml 600 ml Output Estimated Blood Loss 50 ml # Voids 4 Laboratory Tests 11/28/16 00:45: White Blood Count 21.0H, Red Blood Count 2.81L, Hemoglobin 9.1L, Hematocrit 26.8L, Mean Corpuscular Volume 95, Mean Corpuscular Hemoglobin 32.6H, Mean Corpuscular Hemoglobin Concent 34.1, Red Cell Distribution Width 11.2L, Platelet Count 540H, Mean Platelet Volume 5.7L, Neutrophils (%) (Auto) , Lymphocytes (%) (Auto) , Monocytes (%) (Auto) , Eosinophils (%) (Auto) , Basophils (%) (Auto) , Differential Total Cells Counted 100, Neutrophils % ( Manual) 77H, Lymphocytes % (Manual) 17L, Monocytes % (Manual) 6, Eosinophils % ( Manual) 0, Basophils % (Manual) 0, Band Neutrophils 0, Platelet Estimate IncreasedH, Platelet Morphology Normal, Hypochromasia 1+, Vancomycin Level Trough 6.6 Height (Feet): 5 Height (Inches): 1.00 Weight (Pounds): 140 Objective General: alert, cooperative, no distress, appears stated age Head: normocephalic, without obvious abnormality, atraumatic Eyes: conjunctivae/corneas clear. PERRL, EOM's intact Throat: lips, mucosa, and tongue normal. MMM Neck: supple, symmetrical, trachea midline, and no JVD Lungs: clear to auscultation bilaterally Heart: regular rate and rhythm, S1, S2 normal, no murmur, click, rub or gallop Abdomen: soft, non-tender, non-distended, bowel sounds normal; no masses or organomegaly Extremities: extremities normal, atraumatic, no cyanosis or edema Pulses: 2+ and symmetric Skin: skin color, texture, turgor normal; no rashes or lesions Neurologic: grossly normal, no focal deficits COLT GARCIA Nov 28, 2016 14:43
--- NOTE | 2016-11-28 15:16 | Cardiology Report ---
APPROVED REPORT EKG Measurement Heart [id number] Normal sinus rhythm Possible Left atrial enlargement Borderline ECG
--- NOTE | 2016-11-28 15:55 | Infectious Diseases Prog Note ---
Assessment/Plan Assessment/Plan Full consult to follow: A) 1) bilateral thigh/leg and abdominal wound infection - s/p debridement 2) s/p tummy tuck and thigh lift 3) significant leukocytosis, ? sepsis, patient non-toxic however 4) allergies negative, fh-nc, sh-negative, mar noted 5) notes and records reviewed P) 1) vancomycin and ceftriaxone 2) check labs and cultures 3) continue treatment per Dr. Clinton and Dr. Lux 4) orders noted 5) d/w Dr. Clinton 6) thank you Subjective Allergies: Coded Allergies: No Known Allergies (Unverified , 11/26/16) Objective Vital Signs Last 24 Hour Vital Signs Date Time Temp Pulse Resp B/P Pulse Ox O2 Delivery O2 Flow Rate FiO2 11/28/16 15:11 98.1 11/28/16 12:00 98.1 68 20 98/58 100 Room Air 11/28/16 11:18 69 18 97 11/28/16 08:00 97.5 53 19 101/60 99 Room Air 11/28/16 04:00 97.7 69 18 95/58 97 Room Air 11/28/16 00:00 98.1 60 18 98/62 98 Room Air 11/27/16 20:00 98.1 66 17 97/60 96 Room Air 11/27/16 16:00 97.0 63 18 111/75 97 Room Air 18 Height (Feet): 5 Height (Inches): 1.00 Weight (Pounds): 140 Microbiology Date/Time Source Procedure Growth Status 11/26/16 11:35 Blood Blood Culture - Preliminary NO GROWTH AFTER 24 HOURS Resulted 11/26/16 11:35 Blood Blood Culture - Preliminary NO GROWTH AFTER 24 HOURS Resulted Laboratory Tests Test 11/28/16 00:45 White Blood Count 21.0 K/UL (4.8-10.8) H Red Blood Count 2.81 M/UL (4.20-5.40) L Hemoglobin 9.1 G/DL (12.0-16.0) L Hematocrit 26.8 % (37.0-47.0) L Mean Corpuscular Volume 95 FL (80-99) Mean Corpuscular Hemoglobin 32.6 PG (27.0-31.0) H Mean Corpuscular Hemoglobin Concent 34.1 G/DL (32.0-36.0) Red Cell Distribution Width 11.2 % (11.6-14.8) L Platelet Count 540 K/UL (150-450) H Mean Platelet Volume 5.7 FL (6.5-10.1) L Neutrophils (%) (Auto) % (45.0-75.0) Lymphocytes (%) (Auto) % (20.0-45.0) Monocytes (%) (Auto) % (1.0-10.0) Eosinophils (%) (Auto) % (0.0-3.0) Basophils (%) (Auto) % (0.0-2.0) Differential Total Cells Counted 100 Neutrophils % (Manual) 77 % (45-75) H Lymphocytes % (Manual) 17 % (20-45) L Monocytes % (Manual) 6 % (1-10) Eosinophils % (Manual) 0 % (0-3) Basophils % (Manual) 0 % (0-2) Band Neutrophils 0 % (0-8) Platelet Estimate Increased H Platelet Morphology Normal Hypochromasia 1+ Vancomycin Level Trough 6.6 ug/mL (5.0-12.0) Current Medications Medications (Trade) Dose Ordered Sig/Javier Route PRN Reason Start Time Stop Time Status Last Admin Dose Admin Acetaminophen (Tylenol) 650 mg Q4H PRN ORAL FEVER 11/27/16 13:00 12/27/16 12:59 Acetaminophen (Tylenol) 650 mg Q6H PRN ORAL Mild Pain (Pain Scale 1-3) 11/27/16 13:00 12/27/16 12:59 Al Hydroxide/Mg Hydroxide (Mylanta II) 30 ml Q6H PRN ORAL dyspepsia 11/26/16 14:15 12/26/16 14:14 Bisacodyl (Dulcolax) 10 mg HSPRN PRN RECTAL Constipation 11/26/16 21:00 12/26/16 20:59 Ceftriaxone Sodium 1 gm/ Dextrose 55 ml @ 110 mls/hr Q24H IVPB 11/27/16 16:00 12/04/16 15:59 11/27/16 16:09 Dextrose (Dextrose 50%) STAT PRN IV Hypoglycemia 11/26/16 14:15 12/26/16 14:14 Dextrose/Sodium Chloride (D5ns) 1,000 ml @ 75 mls/hr [id number] IV 11/27/16 00:00 12/27/16 00:00 11/27/16 12:58 Diphenhydramine HCl 12.5 mg 12.5 mg Q6H PRN IVP Itching/Pruritis 11/27/16 13:00 12/27/16 12:59 Docusate Sodium (Colace) 100 mg EVERY 12 HOURS ORAL 11/26/16 21:00 12/26/16 20:59 11/28/16 09:41 Heparin Sodium (Porcine) (Heparin 5000 units/ml) 5,000 units EVERY 12 HOURS SUBQ 11/28/16 09:00 12/28/16 08:59 11/28/16 09:50 Hydromorphone HCl (Dilaudid) 0.5 mg Q3H PRN IVP Pain Score 1-3 11/27/16 13:00 12/04/16 12:59 Hydromorphone HCl (Dilaudid) 1 mg Q3H PRN IVP pain score 4-6 11/27/16 13:00 12/04/16 12:59 11/28/16 14:41 Hydromorphone HCl (Dilaudid) 2 mg Q3H PRN IVP pain score 7-10 11/27/16 13:00 12/04/16 12:59 Lorazepam (Ativan) 1 mg Q4H PRN ORAL For Anxiety 11/26/16 14:15 12/03/16 14:14 Magnesium Hydroxide (Mom) 30 ml HSPRN PRN ORAL Constipation 11/26/16 21:00 12/26/16 20:59 Ondansetron HCl (Zofran) 4 mg Q6H PRN IVP Nausea & Vomiting 11/27/16 13:00 12/27/16 12:59 11/27/16 14:29 Polyethylene Glycol (Miralax) 17 gm HSPRN PRN ORAL Constipation 11/26/16 14:15 12/26/16 14:14 Vancomycin HCl (Vanco rx to dose) 1 ea DAILY PRN MISC Per rx protocol 11/26/16 14:15 12/26/16 14:14 Vancomycin HCl/ Dextrose (Vancomycin/D5W) 275 ml @ 183.333 mls/hr Q12H IVPB 11/28/16 02:00 12/03/16 01:59 11/28/16 14:41 Zolpidem Tartrate (Ambien) 5 mg HSPRN PRN ORAL Insomnia 11/27/16 21:00 12/27/16 20:59 ZULEMA NATHAN Nov 28, 2016 15:55
[2016-11-28 16:00] VITALS: BP 106/62
[2016-11-28] MEDS: cefTRIAXone 1gm/D5W 55ml IVPB SCH ×2 (16:46)
[2016-11-28 20:00] VITALS: BP 101/59
--- NOTE | 2016-11-28 21:49 | Consultation ---
DATE OF CONSULTATION: CONSULTING PHYSICIAN: Geovani Newberry M.D. ATTENDING PHYSICIAN: Kylah Clinton M.D. REASON FOR CONSULTATION: Infected wound with bilateral thigh groin leg areas and abdominal wound and leukocytosis. CHIEF COMPLAINT: Coming to the hospital with infected wounds and wound dehiscence. HISTORY OF PRESENT ILLNESS: This is a very pleasant 36-year-old female with a history of tummy tuck and thigh lift. The patient presented to [facility] for wound dehiscence. The patient was noted to have a significant leukocytosis also. The patient now status post debridement of the lower abdominal wound and also the bilateral thigh groin leg wounds. Infectious consultation was requested by Dr. . The patient presented with Vancomycin and Rocephin. Both cultures UA and chest x-ray are negative so far. Blood cultures are negative. UA and chest x-ray are negative. Case was discussed with Dr. Clinton. . The patient is status post debridement of the bilateral leg, thigh, and groin wounds. PAST MEDICAL HISTORY: Includes the following: The patient has a past medical history of plastic surgery as discussed with tummy and tuck and thigh lifts. The patient has no history of diabetes or hypertension. The patient has a history of tummy tuck . MEDICATIONS: Upon reviewing the MAR, the patient is on the following medications: The patient is on heparin, vancomycin, Rocephin, Ambien, Dilaudid, Tylenol, Zofran, IV fluids, bisacodyl, MiraLax, Ativan, and Mylanta. ALLERGIES: No known drug allergies. SOCIAL HISTORY: Negative for smoking, alcohol, or drug abuse. FAMILY HISTORY: Noncontributory. REVIEW OF SYSTEMS: Constitutional: The patient has no focal weakness. She has no fevers or chills. Head And Neck: No thrush or dysphagia. Cardiac: No chest pain. Gastrointestinal: No nausea, vomiting, or diarrhea. Genitourinary: . Skin: No rash or itching. Extremities: No extremity pain. Neurologic: No seizures. PHYSICAL EXAMINATION: GENERAL: The patient is alert and responsive in no acute distress. Nontoxic and nonseptic. VITAL SIGNS: Temperature 98.1 degrees, pulse rate 68, respiratory rate 20, blood pressure 90/50, and saturation 100%. Respiratory is high at 22. HEAD AND NECK: Oral exam, no thrush. Eye exam, no icterus. Neck is supple. No JVD. Normocephalic. No facial droop. HEART: Regular. No gallop or murmur. ABDOMEN: Soft. Positive bowel sounds. Nontender. No organomegaly. LUNGS: Clear. No rhonchi or rales. SKIN: Her wounds are covered. No rash. MUSCULOSKELETAL: No effusions or contractures. DERMATOLOGIC: Legs are without cellulitis. PERIPHERAL VASCULAR: She has left foot and right foot wound. The more extensive wound is the left foot. This was reviewed. It has some areas of slough and looks like necrosis. RECTAL: . GENITOURINARY: She has a Dumont. LINES: Line sites is without phlebitis. NEUROLOGIC: Generalized weakness. LABORATORY DATA: UA is negative. Blood culture is negative today. Chest x-ray is negative. Creatinine is 0.7. White count is 21.0. Hemoglobin 9.1 and platelet count is 540. ASSESSMENT AND PLAN: 1. The patient has bilateral thigh and leg and abdominal wound infection status post debridement. The patient has leukocytosis, unclear the patient has sepsis. Even though, she does have some criteria including elevated white count and respiratory rate over 20. Clinically, she seems to be nontoxic. The patient continues to Vancomycin and Rocephin and will check final blood cultures. 2. Status post tummy tuck and thigh lift. 3. No other significant past medical history. 4. Cultures are negative. 5. Pain management by Dr. Clinton. 6. Wound care per . 7. Case was discussed with Dr. Clinton. 8. Notes were reviewed. Geovani Newberry M.D. DR: ISAÍAS JOB#: [id number] CC:
[2016-11-28] MEDS ORDERED: Rate Change PCA 1 Each MISC PRN (22:30)
[2016-11-28] MEDS ORDERED: PCA HYDROmorphone 1mg/ml 30 ML IV PRN (22:30)
[2016-11-28] MEDS ORDERED: Naloxone 0.4mg/ml Inj IVP PRN (22:30)
[2016-11-28] MEDS ORDERED: DiphenhydrAMINE 50mg/ml Inj IVP PRN (22:30)
[2016-11-28] MEDS ORDERED: PCA shift volume MISC SCH (23:00)
[2016-11-29] MEDS: HYDROmorphone 1mg/ml Carpuject IVP PRN ×7 (00:01→20:49)
[2016-11-29 00:21] VITALS: BP 105/60
[2016-11-29] MEDS: Vancomycin 1250mg/D5W 275ml IVPB SCH ×4 (01:52→13:33)
[2016-11-29 04:00] VITALS: BP 102/60
[2016-11-29 07:01] LABS: EOSINOPHILS % (AUTO) 1.3 % (0.0-3.0); LYMPHOCYTES % (AUTO) 17.8 % (20.0-45.0); MEAN CORPUSCULAR HEMOGLOBIN 32.2 PG (27.0-31.0); MEAN CORPUSCULAR HGB CONC 33.1 G/DL (32.0-36.0); MEAN CORPUSCULAR VOLUME 97 FL (80-99); MEAN PLATELET VOLUME 5.5 FL (6.5-10.1); MONOCYTES % (AUTO) 9.7 % (1.0-10.0); NEUTROPHILS % (AUTO) 70.2 % (45.0-75.0); PLATELET COUNT 510 K/UL (150-450); RED BLOOD COUNT 2.84 M/UL (4.20-5.40); RED CELL DISTRIBUTION WIDTH 11.4 % (11.6-14.8); WHITE BLOOD COUNT 16.8 K/UL (4.8-10.8)
[2016-11-29 07:31] LABS: ANION GAP 13 (5-15); CARBON DIOXIDE 24 mEQ/L (20-30); CHLORIDE 98 mEQ/L (98-107); CREATININE 0.7 mg/dL (0.5-0.9); GLOMERULAR FILTRATION RATE > 60 mL/min (>60); HEMOLYSIS 2; SODIUM 135 mEQ/L (135-145)
[2016-11-29] MEDS: D5NS 1,000 ML IV SCH ×2 (07:38→23:15)
[2016-11-29 08:00] VITALS: BP 105/61
[2016-11-29] MEDS: Docusate 100mg cap ORAL SCH ×2 (09:01→20:49)
[2016-11-29] MEDS: Heparin 5000 units/ml inj SUBQ SCH ×2 (09:04→20:54)
[2016-11-29] MEDS ORDERED: D5 1/2NS 1000ml IV ONE (09:46)
[2016-11-29] MEDS ORDERED: Tubing IV Secondary IV ONE (09:46)
[2016-11-29] MEDS ORDERED: 1/2 NS 1000ml IV ONE (09:46)
--- NOTE | 2016-11-29 10:44 | General Progress Note ---
Progress Note Progress Note Pt seen and examined. She is POD# 2 from closure of wounds. Overall doing ok and WBC is down to 16 from 21 but she had a temp of 101.8 The cellulitis around abdomen is about the same. Given the temp and cellulitis despite the drop in WBC, we will continue the IV abx and check the CBC in Am. If no fevers, with improved cellulitis and decreased WBC she may go home in AM. MERCEDEZ Agrawal MD Nov 29, 2016 10:44
[2016-11-29] MEDS: Neosporin Oint 15gm TOPIC SCH ×2 (11:35→20:55)
[2016-11-29 12:00] VITALS: BP 93/54
--- NOTE | 2016-11-29 14:05 | General Progress Note ---
Assessment/Plan Problem List: (1) Wound dehiscence, surgical Assessment & Plan: - s/p debridement of leg/thigh POD#2 - follow WBC - encourage mobilization/ambulation - encourage incentive spirometry to optimize pulmonary hygiene - DVT/GI prophylaxis as appropriate - ctm CBC and hemodynamics - ctm electrolytes, adjust/replete prn - PT/OT/ST, if indicated - pain control, supportive care, bowel regimen - DC planning ICD Codes: T81.31XA - Disruption of external operation (surgical) wound, not elsewhere classified, initial encounter SNOMED: [id number] Qualifiers: Qualified Codes: T81.31XA - Disruption of external operation (surgical) wound, not elsewhere classified, initial encounter Subjective Date patient seen: Nov 29, 2016 Time patient seen: 14:04 ROS Limited/Unobtainable: No Allergies: Coded Allergies: No Known Allergies (Unverified , 11/26/16) Subjective s/p debridement of leg/thigh POD#2, no periop or postop complications, pain controlled, no chest pain or dyspnea Objective Last 24 Hour Vital Signs Date Time Temp Pulse Resp B/P Pulse Ox O2 Delivery O2 Flow Rate FiO2 11/29/16 12:00 98.2 87 17 93/54 87 Room Air 11/29/16 10:44 99.0 11/29/16 10:00 99.0 11/29/16 10:00 99.0 11/29/16 08:00 101.8 92 18 105/61 94 Room Air 11/29/16 04:00 98.6 90 19 102/60 97 Room Air 11/29/16 00:21 98.2 86 19 105/60 92 Room Air 11/28/16 20:00 98.8 71 17 101/59 98 Room Air 11/28/16 16:00 98.6 71 17 106/62 96 Room Air Intake and Output 11/28/16 11/29/16 19:00 07:00 Intake Total 1180 ml 540 ml Output Total 1 ml Balance 1180 ml 539 ml Intake Oral 300 ml 240 ml IV Total 880 ml 300 ml Output Urine Total 1 ml # Voids 5 # Bowel Movements 1 2 Laboratory Tests 11/29/16 06:46: White Blood Count 16.8H, Red Blood Count 2.84L, Hemoglobin 9.1L, Hematocrit 27.6L, Mean Corpuscular Volume 97, Mean Corpuscular Hemoglobin 32.2H, Mean Corpuscular Hemoglobin Concent 33.1, Red Cell Distribution Width 11.4L, Platelet Count 510H, Mean Platelet Volume 5.5L, Neutrophils (%) (Auto) 70.2, Lymphocytes (%) (Auto) 17.8L, Monocytes (%) (Auto) 9.7, Eosinophils (%) (Auto) 1.3, Basophils (%) (Auto) 1.0, Sodium Level 135, Potassium Level 4.0, Chloride Level 98, Carbon Dioxide Level 24, Anion Gap 13, Blood Urea Nitrogen 11, Creatinine 0.7, Estimat Glomerular Filtration Rate > 60, Glucose Level 93, Calcium Level 8.0L Height (Feet): 5 Height (Inches): 1.00 Weight (Pounds): 140 Objective General: alert, cooperative, no distress, appears stated age Head: normocephalic, without obvious abnormality, atraumatic Eyes: conjunctivae/corneas clear. PERRL, EOM's intact Throat: lips, mucosa, and tongue normal. MMM Neck: supple, symmetrical, trachea midline, and no JVD Lungs: clear to auscultation bilaterally Heart: regular rate and rhythm, S1, S2 normal, no murmur, click, rub or gallop Abdomen: soft, non-tender, non-distended, bowel sounds normal; no masses or organomegaly Extremities: extremities normal, atraumatic, no cyanosis or edema Pulses: 2+ and symmetric Skin: skin color, texture, turgor normal; no rashes or lesions Neurologic: grossly normal, no focal deficits COLT GARCIA Nov 29, 2016 14:05
[2016-11-29 16:00] VITALS: BP 109/61
[2016-11-29] MEDS: cefTRIAXone 1gm/D5W 55ml IVPB SCH ×2 (16:38)
[2016-11-29 20:00] VITALS: BP 111/66
[2016-11-30] MEDS: HYDROmorphone 1mg/ml Carpuject IVP PRN ×3 (00:32→09:44)
[2016-11-30 00:43] VITALS: BP 124/72
[2016-11-30] MEDS: Vancomycin 1250mg/D5W 275ml IVPB SCH ×4 (01:52→14:03)
[2016-11-30 04:00] VITALS: BP 117/69
[2016-11-30 07:34] LABS: BASOPHILS % (AUTO) 0.8 % (0.0-2.0); EOSINOPHILS % (AUTO) 1.7 % (0.0-3.0); LYMPHOCYTES % (AUTO) 11.3 % (20.0-45.0); MEAN CORPUSCULAR HEMOGLOBIN 32.2 PG (27.0-31.0); MEAN CORPUSCULAR HGB CONC 33.2 G/DL (32.0-36.0); MEAN CORPUSCULAR VOLUME 97 FL (80-99); MEAN PLATELET VOLUME 5.6 FL (6.5-10.1); NEUTROPHILS % (AUTO) 76.1 % (45.0-75.0); PLATELET COUNT 473 K/UL (150-450); RED BLOOD COUNT 2.79 M/UL (4.20-5.40); RED CELL DISTRIBUTION WIDTH 11.1 % (11.6-14.8); WHITE BLOOD COUNT 16.2 K/UL (4.8-10.8)
[2016-11-30 07:40] LABS: ALANINE AMINOTRANSFERASE 154 U/L (3-33); ALBUMIN/GLOBULIN RATIO 0.9 (1.0-2.7); ANION GAP 14 (5-15); ASPARTATE AMINO TRANSFERASE 122 U/L (5-40); CALCIUM 7.9 mg/dL (8.6-10.2); CARBON DIOXIDE 24 mEQ/L (20-30); CHLORIDE 98 mEQ/L (98-107); CREATININE 0.6 mg/dL (0.5-0.9); GLOMERULAR FILTRATION RATE > 60 mL/min (>60); HEMOLYSIS 0; POTASSIUM 4.3 mEQ/L (3.4-4.9); SODIUM 136 mEQ/L (135-145)
[2016-11-30] MEDS: Neosporin Oint 15gm TOPIC SCH ×2 (08:34→18:48)
[2016-11-30] MEDS: Docusate 100mg cap ORAL SCH ×2 (08:34→18:48)
[2016-11-30] MEDS: D5NS 1,000 ML IV SCH (08:34)
[2016-11-30] MEDS: Heparin 5000 units/ml inj SUBQ SCH ×2 (08:43→22:05)
[2016-11-30 08:55] VITALS: BP 119/68
[2016-11-30] MEDS ORDERED: D5NS 1000ml IV ONE (10:45)
[2016-11-30] MEDS ORDERED: Tubing IV Secondary IV ONE (10:45)
--- NOTE | 2016-11-30 10:58 | General Progress Note ---
Progress Note Progress Note Pt seen and examined. POD# 3 from reclosure of wounds. Overall doing OK. Afebrile this AM. WBC is slightly down but still elevated. (16.8 to 16.2) Abdominal contour is good and swelling is down with cellulitis around incision resolving. R groin wound is looking stable. L groin wound incision is holding together but there is still some erythema. Given the overall clinical picture I think it is best for her to be observed as an inpatient for one more day on IV abx, Will reassess in AM and recheck the WBC in AM. If the cellulitis in the left groin persists or worsens will consider opening part of the incision to help address. MERCEDEZ Agrawal MD Nov 30, 2016 10:58
--- NOTE | 2016-11-30 11:52 | Infectious Diseases Prog Note ---
Assessment/Plan Assessment/Plan Full consult to follow: A) 1) bilateral thigh/leg and abdominal wound infection with cellulitis - s/p debridement 2) s/p tummy tuck and thigh lift 3) leukocytosis and fevers - leukocytosis overall better but still elevated with occasional 4) allergies negative, fh-nc, sh-negative, mar noted 5) notes and records reviewed 6) surgery note and wound examination reviewed 7) d/w RN P) 1) vancomycin and ceftriaxone for now 2) if oral antibiotics needed then can treat with cefdinir plus zyvox or cefdinir plus bactrim for 10 days - cefdinir dose is 300 mg po BID - bactrim dose 1 DS tablet po BID 3) watch labs and temperatures 4) continue treatment per Dr. Clinton and Dr. Lux 5) orders noted and entered 6) wound treatment per Dr. Lux 7) d/w pt 8) d/w Dr. Clinton and Dr. Lux about abx Subjective Constitutional: Reports: fever - t-max - 101.7 yesterday but now afebrile HEENT: Denies: congestion Respiratory: Denies: shortness of breath Cardiovascular: Denies: chest pain Gastrointestinal/Abdominal: Denies: diarrhea, nausea, vomiting Genitourinary: Reports: other - no mcmullen, Denies: dysuria, frequency, hematuria , nocturia Neurologic: Denies: headache Psychiatric: Denies: depression Skin: Denies: rash Hematologic: Denies: bleeding Musculoskeletal: Denies: pain Allergies: Coded Allergies: No Known Allergies (Unverified , 11/26/16) Objective Vital Signs Last 24 Hour Vital Signs Date Time Temp Pulse Resp B/P Pulse Ox O2 Delivery O2 Flow Rate FiO2 11/30/16 10:14 97.9 11/30/16 08:55 97.9 83 15 119/68 97 Room Air 11/30/16 04:00 98.1 93 21 117/69 95 Room Air 11/30/16 00:43 98.2 94 18 124/72 93 Room Air 11/29/16 20:00 98.4 78 17 111/66 98 Room Air 11/29/16 16:34 101.7 11/29/16 16:00 98.2 87 17 109/61 99 Room Air 11/29/16 12:00 98.2 87 17 93/54 87 Room Air Height (Feet): 5 Height (Inches): 1.00 Weight (Pounds): 140 General Appearance: no acute distress HEENT: normocephalic, atraumatic, anicteric, mucous membranes moist, PERRL, EOMI, pharynx normal, supple, no JVD Respiratory/Chest: lungs clear, normal breath sounds, no respiratory distress, no accessory muscle use Cardiovascular: normal rate, regular rhythm, no gallop/murmur, no JVD Abdomen: normal bowel sounds, soft, non tender, no organomegaly, non distended Genitourinary: other - no mcmullen Extremities: no cyanosis Skin: no rash, other - wounds covered, surgery note reviewed 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 Complete Laboratory Tests Test 11/30/16 06:55 White Blood Count 16.2 K/UL (4.8-10.8) H Red Blood Count 2.79 M/UL (4.20-5.40) L Hemoglobin 9.0 G/DL (12.0-16.0) L Hematocrit 27.0 % (37.0-47.0) L Mean Corpuscular Volume 97 FL (80-99) Mean Corpuscular Hemoglobin 32.2 PG (27.0-31.0) H Mean Corpuscular Hemoglobin Concent 33.2 G/DL (32.0-36.0) Red Cell Distribution Width 11.1 % (11.6-14.8) L Platelet Count 473 K/UL (150-450) H Mean Platelet Volume 5.6 FL (6.5-10.1) L Neutrophils (%) (Auto) 76.1 % (45.0-75.0) H Lymphocytes (%) (Auto) 11.3 % (20.0-45.0) L Monocytes (%) (Auto) 10.0 % (1.0-10.0) Eosinophils (%) (Auto) 1.7 % (0.0-3.0) Basophils (%) (Auto) 0.8 % (0.0-2.0) Sodium Level 136 mEQ/L (135-145) Potassium Level 4.3 mEQ/L (3.4-4.9) Chloride Level 98 mEQ/L (98-107) Carbon Dioxide Level 24 mEQ/L (20-30) Anion Gap 14 (5-15) Blood Urea Nitrogen 7 mg/dL (7-23) Creatinine 0.6 mg/dL (0.5-0.9) Estimat Glomerular Filtration Rate > 60 mL/min (>60) Glucose Level 133 mg/dL (74-106) H Calcium Level 7.9 mg/dL (8.6-10.2) L Total Bilirubin 0.3 mg/dL (0.0-1.2) Aspartate Amino Transf (AST/SGOT) 122 U/L (5-40) H Alanine Aminotransferase (ALT/SGPT) 154 U/L (3-33) H Alkaline Phosphatase 111 U/L (35-104) H Total Protein 5.0 g/dL (6.6-8.7) L Albumin 2.4 g/dL (3.5-5.2) L Globulin 2.6 g/dL Albumin/Globulin Ratio 0.9 (1.0-2.7) L Current Medications Medications (Trade) Dose Ordered Sig/Javier Route PRN Reason Start Time Stop Time Status Last Admin Dose Admin Acetaminophen (Tylenol) 650 mg Q4H PRN ORAL FEVER 11/27/16 13:00 12/27/16 12:59 11/29/16 16:53 Acetaminophen (Tylenol) 650 mg Q6H PRN ORAL Mild Pain (Pain Scale 1-3) 11/27/16 13:00 12/27/16 12:59 Al Hydroxide/Mg Hydroxide (Mylanta II) 30 ml Q6H PRN ORAL dyspepsia 11/26/16 14:15 12/26/16 14:14 Bisacodyl (Dulcolax) 10 mg HSPRN PRN RECTAL Constipation 11/26/16 21:00 12/26/16 20:59 11/28/16 21:58 Ceftriaxone Sodium 1 gm/ Dextrose 55 ml @ 110 mls/hr Q24H IVPB 11/27/16 16:00 12/04/16 15:59 2/18/17 16:38 Dextrose (Dextrose 50%) STAT PRN IV Hypoglycemia 11/26/16 14:15 12/26/16 14:14 Dextrose/Sodium Chloride (D5ns) 1,000 ml @ 10 mls/hr Q24H IV 11/30/16 12:00 12/30/16 11:59 Diphenhydramine HCl 12.5 mg 12.5 mg Q6H PRN IVP Itching/Pruritis 11/27/16 13:00 12/27/16 12:59 Docusate Sodium (Colace) 100 mg EVERY 12 HOURS ORAL 11/26/16 21:00 12/26/16 20:59 11/30/16 08:34 Heparin Sodium (Porcine) (Heparin 5000 units/ml) 5,000 units EVERY 12 HOURS SUBQ 11/28/16 09:00 12/28/16 08:59 11/30/16 08:43 Hydromorphone HCl (Dilaudid) 0.5 mg Q3H PRN IVP Pain Score 1-3 11/27/16 13:00 12/04/16 12:59 Hydromorphone HCl (Dilaudid) 1 mg Q3H PRN IVP pain score 4-6 11/27/16 13:00 12/04/16 12:59 11/30/16 09:44 Hydromorphone HCl (Dilaudid) 2 mg Q3H PRN IVP pain score 7-10 11/27/16 13:00 12/04/16 12:59 11/28/16 18:06 Lorazepam (Ativan) 1 mg Q4H PRN ORAL For Anxiety 11/26/16 14:15 12/03/16 14:14 Magnesium Hydroxide (Mom) 30 ml HSPRN PRN ORAL Constipation 11/26/16 21:00 12/26/16 20:59 Neomycin/ Polymyxin/ Bacitracin 1 applic 1 applic TWICE A DAY TOPIC 11/29/16 12:00 12/29/16 11:59 11/30/16 08:34 Ondansetron HCl (Zofran) 4 mg Q6H PRN IVP Nausea & Vomiting 11/27/16 13:00 12/27/16 12:59 11/29/16 17:15 Polyethylene Glycol (Miralax) 17 gm HSPRN PRN ORAL Constipation 11/26/16 14:15 12/26/16 14:14 Vancomycin HCl (Vanco rx to dose) 1 ea DAILY PRN MISC Per rx protocol 11/26/16 14:15 12/26/16 14:14 Vancomycin HCl/ Dextrose (Vancomycin/D5W) 275 ml @ 183.333 mls/hr Q12H IVPB 11/28/16 02:00 12/03/16 01:59 11/30/16 01:52 Zolpidem Tartrate (Ambien) 5 mg HSPRN PRN ORAL Insomnia 11/27/16 21:00 12/27/16 20:59 ZULEMA NATHAN Nov 30, 2016 11:51
[2016-11-30] MEDS ORDERED: D5NS 1,000 ML IV SCH (12:00)
[2016-11-30 12:20] VITALS: BP 112/76
--- NOTE | 2016-11-30 13:24 | General Progress Note ---
Assessment/Plan Problem List: (1) Wound dehiscence, surgical Assessment & Plan: - s/p debridement of leg/thigh POD#3 - follow WBC - Can likely switch to PO abx soon per ID - Follow fever curve - encourage mobilization/ambulation - encourage incentive spirometry to optimize pulmonary hygiene - DVT/GI prophylaxis as appropriate - ctm CBC and hemodynamics - ctm electrolytes, adjust/replete prn - PT/OT/ST, if indicated - pain control, supportive care, bowel regimen - DC planning ICD Codes: T81.31XA - Disruption of external operation (surgical) wound, not elsewhere classified, initial encounter SNOMED: [id number] Qualifiers: Qualified Codes: T81.31XA - Disruption of external operation (surgical) wound, not elsewhere classified, initial encounter Subjective Date patient seen: Nov 30, 2016 Time patient seen: 13:23 ROS Limited/Unobtainable: No Allergies: Coded Allergies: No Known Allergies (Unverified , 11/26/16) Subjective s/p debridement of leg/thigh POD#3, no periop or postop complications, pain controlled, no chest pain or dyspnea Objective Last 24 Hour Vital Signs Date Time Temp Pulse Resp B/P Pulse Ox O2 Delivery O2 Flow Rate FiO2 11/30/16 12:20 97.7 80 15 112/76 99 Room Air 11/30/16 10:14 97.9 11/30/16 08:55 97.9 83 15 119/68 97 Room Air 11/30/16 04:00 98.1 93 21 117/69 95 Room Air 11/30/16 00:43 98.2 94 18 124/72 93 Room Air 11/29/16 20:00 98.4 78 17 111/66 98 Room Air 11/29/16 16:34 101.7 11/29/16 16:00 98.2 87 17 109/61 99 Room Air Intake and Output 11/29/16 11/30/16 19:00 07:00 Intake Total 965 ml 540 ml Balance 965 ml 540 ml Intake Oral 440 ml 240 ml IV Total 525 ml 300 ml # Voids 3 6 Laboratory Tests 11/30/16 06:55: White Blood Count 16.2H, Red Blood Count 2.79L, Hemoglobin 9.0L, Hematocrit 27.0L, Mean Corpuscular Volume 97, Mean Corpuscular Hemoglobin 32.2H, Mean Corpuscular Hemoglobin Concent 33.2, Red Cell Distribution Width 11.1L, Platelet Count 473H, Mean Platelet Volume 5.6L, Neutrophils (%) (Auto) 76.1H, Lymphocytes (%) (Auto) 11.3L, Monocytes (%) (Auto) 10.0, Eosinophils (%) (Auto) 1.7, Basophils (%) (Auto) 0.8, Sodium Level 136, Potassium Level 4.3, Chloride Level 98, Carbon Dioxide Level 24, Anion Gap 14, Blood Urea Nitrogen 7, Creatinine 0.6, Estimat Glomerular Filtration Rate > 60, Glucose Level 133H, Calcium Level 7.9L, Total Bilirubin 0.3, Aspartate Amino Transf (AST/SGOT) 122H , Alanine Aminotransferase (ALT/SGPT) 154H, Alkaline Phosphatase 111H, Total Protein 5.0L, Albumin 2.4L, Globulin 2.6, Albumin/Globulin Ratio 0.9L 11/30/16 12:55: Vancomycin Level Trough [Pending] Height (Feet): 5 Height (Inches): 1.00 Weight (Pounds): 140 Objective General: alert, cooperative, no distress, appears stated age Head: normocephalic, without obvious abnormality, atraumatic Eyes: conjunctivae/corneas clear. PERRL, EOM's intact Throat: lips, mucosa, and tongue normal. MMM Neck: supple, symmetrical, trachea midline, and no JVD Lungs: clear to auscultation bilaterally Heart: regular rate and rhythm, S1, S2 normal, no murmur, click, rub or gallop Abdomen: soft, non-tender, non-distended, bowel sounds normal; no masses or organomegaly Extremities: extremities normal, atraumatic, no cyanosis or edema Pulses: 2+ and symmetric Skin: skin color, texture, turgor normal; no rashes or lesions Neurologic: grossly normal, no focal deficits COLT GARCIA Nov 30, 2016 13:24
[2016-11-30] MEDS ORDERED: Oxycodone/Acetaminophen 5-325 ORAL PRN (13:30)
[2016-11-30] MEDS: Norco 10mg/325mg tab ORAL PRN ×3 (14:06→22:51)
[2016-11-30 16:20] VITALS: BP 105/62
[2016-11-30] MEDS: cefTRIAXone 1gm/D5W 55ml IVPB SCH ×2 (17:00)
[2016-11-30 20:46] VITALS: BP 103/65
[2016-12-01] VITALS: BP 103/65
[2016-12-01] MEDS: Vancomycin 1250mg/D5W 275ml IVPB SCH ×2 (02:00)
[2016-12-01] MEDS: Norco 10mg/325mg tab ORAL PRN ×3 (03:27→11:46)
[2016-12-01 04:00] VITALS: BP 104/67
[2016-12-01 06:06] LABS: BASOPHILS % (AUTO) 1.1 % (0.0-2.0); EOSINOPHILS % (AUTO) 4.9 % (0.0-3.0); LYMPHOCYTES % (AUTO) 21.4 % (20.0-45.0); MEAN CORPUSCULAR HEMOGLOBIN 32.7 PG (27.0-31.0); MEAN CORPUSCULAR HGB CONC 33.7 G/DL (32.0-36.0); MEAN CORPUSCULAR VOLUME 97 FL (80-99); MEAN PLATELET VOLUME 5.9 FL (6.5-10.1); MONOCYTES % (AUTO) 10.7 % (1.0-10.0); PLATELET COUNT 455 K/UL (150-450); RED BLOOD COUNT 2.66 M/UL (4.20-5.40); RED CELL DISTRIBUTION WIDTH 11.2 % (11.6-14.8)
[2016-12-01 06:57] LABS: ANION GAP 10 (5-15); CALCIUM 8.9 mg/dL (8.6-10.2); CARBON DIOXIDE 26 mEQ/L (20-30); CHLORIDE 105 mEQ/L (98-107); CREATININE 0.5 mg/dL (0.5-0.9); GLOMERULAR FILTRATION RATE > 60 mL/min (>60); HEMOLYSIS 1; POTASSIUM 4.5 mEQ/L (3.4-4.9); SODIUM 141 mEQ/L (135-145)
[2016-12-01 08:00] VITALS: BP 108/71
[2016-12-01] MEDS ORDERED: Cefdinir 300mg cap ORAL SCH (09:00)
[2016-12-01] MEDS ORDERED: Bactrim DS (160mg/800mg) tab ORAL SCH (09:00)
[2016-12-01] MEDS: Neosporin Oint 15gm TOPIC SCH (09:49)
[2016-12-01] MEDS: Docusate 100mg cap ORAL SCH (09:49)
[2016-12-01] MEDS: Heparin 5000 units/ml inj SUBQ SCH (09:52)
--- NOTE | 2016-12-01 11:33 | Infectious Diseases Prog Note ---
Assessment/Plan Assessment/Plan A) 1) bilateral thigh/leg and abdominal wound infection with cellulitis - s/p debridement 2) s/p tummy tuck and thigh lift 3) leukocytosis and fevers - leukocytosis and fevers better 4) allergies negative, fh-nc, sh-negative, mar noted 5) notes and records reviewed 6) surgery note and wound examination reviewed 7) d/w RN P) 1) change to bactirm and cefdinir oral for 10 days 2) script for oral abx ordered 3) watch labs and temperatures 4) continue treatment per Dr. Clinton and Dr. Lux 5) orders noted and entered 6) wound treatment per Dr. Lux 7) d/w pt Subjective Constitutional: Denies: fever HEENT: Denies: congestion Respiratory: Denies: shortness of breath Cardiovascular: Denies: chest pain Gastrointestinal/Abdominal: Denies: diarrhea, nausea, vomiting Neurologic: Denies: headache Psychiatric: Denies: depression Hematologic: Denies: bleeding Musculoskeletal: Denies: pain Allergies: Coded Allergies: No Known Allergies (Unverified , 11/26/16) Objective Vital Signs Last 24 Hour Vital Signs Date Time Temp Pulse Resp B/P Pulse Ox O2 Delivery O2 Flow Rate FiO2 12/01/16 08:00 98.2 77 20 108/71 99 Room Air 12/01/16 04:00 97.7 65 18 104/67 98 Room Air 12/01/16 00:00 97.9 70 18 103/65 98 Room Air 11/30/16 20:46 97.9 92 18 103/65 96 Room Air 11/30/16 16:20 97.3 71 18 105/62 99 Room Air 11/30/16 15:05 97.7 11/30/16 12:52 97.7 11/30/16 12:20 97.7 80 15 112/76 99 Room Air Height (Feet): 5 Height (Inches): 1.00 Weight (Pounds): 140 General Appearance: no acute distress HEENT: normocephalic, atraumatic, anicteric, mucous membranes moist, PERRL, EOMI, pharynx normal, supple, no JVD Respiratory/Chest: lungs clear, normal breath sounds, no respiratory distress, no accessory muscle use Cardiovascular: normal rate, regular rhythm, no gallop/murmur, no JVD Abdomen: normal bowel sounds, soft, non tender, no organomegaly, non distended Genitourinary: other - no mcmullen Extremities: no cyanosis Skin: no rash, other - wounds covered 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 Complete Laboratory Tests Test 11/30/16 12:55 12/01/16 05:00 Vancomycin Level Trough 11.8 ug/mL (5.0-12.0) White Blood Count 13.0 K/UL (4.8-10.8) H Red Blood Count 2.66 M/UL (4.20-5.40) L Hemoglobin 8.7 G/DL (12.0-16.0) L Hematocrit 25.8 % (37.0-47.0) L Mean Corpuscular Volume 97 FL (80-99) Mean Corpuscular Hemoglobin 32.7 PG (27.0-31.0) H Mean Corpuscular Hemoglobin Concent 33.7 G/DL (32.0-36.0) Red Cell Distribution Width 11.2 % (11.6-14.8) L Platelet Count 455 K/UL (150-450) H Mean Platelet Volume 5.9 FL (6.5-10.1) L Neutrophils (%) (Auto) 62.0 % (45.0-75.0) Lymphocytes (%) (Auto) 21.4 % (20.0-45.0) Monocytes (%) (Auto) 10.7 % (1.0-10.0) H Eosinophils (%) (Auto) 4.9 % (0.0-3.0) H Basophils (%) (Auto) 1.1 % (0.0-2.0) Sodium Level 141 mEQ/L (135-145) Potassium Level 4.5 mEQ/L (3.4-4.9) Chloride Level 105 mEQ/L (98-107) Carbon Dioxide Level 26 mEQ/L (20-30) Anion Gap 10 (5-15) Blood Urea Nitrogen 6 mg/dL (7-23) L Creatinine 0.5 mg/dL (0.5-0.9) Estimat Glomerular Filtration Rate > 60 mL/min (>60) Glucose Level 104 mg/dL (74-106) Calcium Level 8.9 mg/dL (8.6-10.2) Current Medications Medications (Trade) Dose Ordered Sig/Javier Route PRN Reason Start Time Stop Time Status Last Admin Dose Admin Acetaminophen (Tylenol) 650 mg Q4H PRN ORAL FEVER 11/27/16 13:00 12/27/16 12:59 11/29/16 16:53 Acetaminophen (Tylenol) 650 mg Q6H PRN ORAL Mild Pain (Pain Scale 1-3) 11/27/16 13:00 12/27/16 12:59 11/30/16 11:53 Acetaminophen/ Hydrocodone Bitart ([place] 10/325) 1 ea Q4H PRN ORAL Moderate Pain (Pain Scale 4-6) 11/30/16 13:30 12/07/16 13:29 12/01/16 07:29 Al Hydroxide/Mg Hydroxide (Mylanta II) 30 ml Q6H PRN ORAL dyspepsia 11/26/16 14:15 12/26/16 14:14 Bisacodyl (Dulcolax) 10 mg HSPRN PRN RECTAL Constipation 11/26/16 21:00 12/26/16 20:59 11/30/16 22:51 Cefdinir (Cefdinir) 300 mg BID ORAL 12/01/16 09:00 12/08/16 08:59 12/01/16 09:50 Dextrose (Dextrose 50%) STAT PRN IV Hypoglycemia 11/26/16 14:15 12/26/16 14:14 Dextrose/Sodium Chloride (D5ns) 1,000 ml @ 10 mls/hr Q24H IV 11/30/16 12:00 12/30/16 11:59 11/30/16 11:30 Diphenhydramine HCl (Benadryl) 12.5 mg Q6H PRN IVP Itching/Pruritis 11/27/16 13:00 12/27/16 12:59 Docusate Sodium (Colace) 100 mg EVERY 12 HOURS ORAL 11/26/16 21:00 12/26/16 20:59 12/01/16 09:49 Heparin Sodium (Porcine) (Heparin 5000 units/ml) 5,000 units EVERY 12 HOURS SUBQ 11/28/16 09:00 12/28/16 08:59 12/01/16 09:52 Lorazepam (Ativan) 1 mg Q4H PRN ORAL For Anxiety 11/26/16 14:15 12/03/16 14:14 Magnesium Hydroxide (Mom) 30 ml HSPRN PRN ORAL Constipation 11/26/16 21:00 12/26/16 20:59 Neomycin/ Polymyxin/ Bacitracin 1 applic 1 applic TWICE A DAY TOPIC 11/29/16 12:00 12/29/16 11:59 12/01/16 09:49 Ondansetron HCl (Zofran) 4 mg Q6H PRN IVP Nausea & Vomiting 11/27/16 13:00 12/27/16 12:59 11/30/16 11:53 Oxycodone/ Acetaminophen (Percocet 5-325) 1 tab Q4H PRN ORAL Severe Pain (Pain Scale 7-10) 11/30/16 13:30 12/07/16 13:29 Polyethylene Glycol (Miralax) 17 gm HSPRN PRN ORAL Constipation 11/26/16 14:15 12/26/16 14:14 11/30/16 22:04 Trimethoprim/ Sulfamethoxazole (Bactrim-DS) 1 ea TWICE A DAY ORAL 12/01/16 09:00 12/08/16 08:59 12/01/16 10:01 Vancomycin HCl (Vanco rx to dose) 1 ea DAILY PRN MISC Per rx protocol 11/26/16 14:15 12/26/16 14:14 Zolpidem Tartrate (Ambien) 5 mg HSPRN PRN ORAL Insomnia 11/27/16 21:00 12/27/16 20:59 ZULEMA NATHAN Dec 01, 2016 11:33
[2016-12-01] MEDS ORDERED: BACTRIM DS TAB1 EAC1 ORAL (12:50)
[2016-12-01] MEDS ORDERED: CEFDINIR300 MG PO (12:56)
[2016-12-01] MEDS ORDERED: NORCO 5-325 TA1 EAC1 ORAL (12:57)
--- NOTE | 2016-12-01 14:48 | Discharge Summary ---
Discharge Summary Hospital Course Date of Admission Nov 26, 2016 at 13:35 Date of Discharge Dec 01, 2016 Admitting Diagnosis wound dehiscence Reason for Hospitalization: wound closure surgery HPI Anaid Warren is a 36 year old female who was admitted on Nov 26, 2016 at 13: 35 for Wound Dehiscence Consultations Plastic Surgery ID Procedures See Operative reports Hospital Course 36 y/o female with hx of recent elective surgery on thigh and abdomen, presented with wound dehiscence on L thigh, admitted for IV Abx and wound care. Pt seen by plastic surgery, taken to OR for debridement and complex wound closure (see operative report). After a postop spike in WBC, ID saw the pt, abx were modified, after being afebrile and decreasing WBC, she was dced home with outpt followup with her plastic surgeon on PO abx (bactrim/cefdinir) for another week. Discharge Medications Continued Medications: No Known Medications* (NKM - No Known Medications*) . 0 ., 0 Refills Trimethoprim/Sulfamethoxazole 160/800* (Bactrim Ds Tablet*) 1 Each Tablet 1 TAB ORAL TWICE A DAY, TAB Discharge Condition Upon Discharge: stable Discharge Disposition Patient was discharged to Home (01) Discharge Diagnoses: (1) Wound dehiscence, surgical COLT GARCIA Dec 01, 2016 14:48
== END 2016-12-01 13:45 | disposition home or self-care (01) | DRG 902 ==
LOC: EMR 11:20 → EDBEDREQ 12:55 → 3E 13:35 → EDBEDREQ 14:21
DX: T81.31XA Disruption of external operation (surgical) wound, not elsewhere classified, initial encounter (principal); L03.311 Cellulitis of abdominal wall; L03.115 Cellulitis of right lower limb; L03.116 Cellulitis of left lower limb; Y83.8 Other surgical procedures as the cause of abnormal reaction of the patient, or of later complication, without mention of misadventure at the time of the procedure; K21.9 Gastro-esophageal reflux disease without esophagitis
CPT/HCPCS: 36415; 71010; 80048; 80053; 80202; 81003; 81025; 82553; 83605; 85007; 85025; 85610; 85730; 86850; 86900; 86901; 87040; 87081; 93005; 94003; 94150; J2250; J2405; J2765

== ENCOUNTER 2016-12-20 12:04 | Inpatient (IN) | payer BC ==
[~2016-12-20] VITALS: Ht 157.5 cm; Wt 63.5 kg
[~2016-12-20 12:04] MED LIST: BACTRIM DS TAB1 EAC1 ORAL; CEFDINIR300 MG PO; NKM; NORCO 5-325 TA1 EAC1 ORAL
[2016-12-20] MEDS ORDERED: Vancomycin 1 GM in D5W 275 ML IVPB ONE (13:30)
[2016-12-20] MEDS ORDERED: Piperacillin/Tazobactam 3.375 GM in NS 110 ML IVPB ONE (13:30)
[2016-12-20] MEDS ORDERED: Morphine Sulfate 2mg/ml Inj IVP PRN (13:45)
[2016-12-20] MEDS ORDERED: LORazepam Inj 2mg/ml 1ml IV PRN (13:45)
[2016-12-20] MEDS ORDERED: Milk of Magnesia 30ml Ud ORAL PRN (13:45)
[2016-12-20] MEDS ORDERED: Mylanta II UD 30ml ORAL PRN (13:45)
[2016-12-20] MEDS ORDERED: Miralax 17gm pkt ORAL PRN (13:45)
[2016-12-20] MEDS ORDERED: Morphine Sulfate 4mg/ml Inj IVP PRN (13:45)
--- NOTE | 2016-12-20 13:46 | History and Physical ---
History of Present Illness General Date patient seen: Dec 20, 2016 Time patient seen: 13:41 Reason for Hospitalization: Skin Rash/Abscess Present Illness HPI 36 y/o female with recent admission for wound dehiscence, stabilized and dced approx a month ago, presents with redness/tenderness along her L thigh. she states she noticed some redness on Thursday, spoke with her surgeon, who called in some bactrim. She stated that the redness has increased in size along her L thigh, yesterday and this morning she had significant fevers/chills, was told by her surgeon to come back to the ED for further evaluation. No chest pain or dyspnea, no n/v, pain controlled with norco/tylenol at home. Allergies: Coded Allergies: No Known Allergies (Unverified , 11/26/16) Medication History Scheduled Cefdinir (Cefdinir), 300 MG PO BID, (Reported) No Known Medications* (NKM - No Known Medications*), 0 ., (Reported) Trimethoprim/Sulfamethoxazole 160/800* (Bactrim Ds Tablet*), 1 TAB ORAL TWICE A DAY, (Reported) Scheduled PRN Hydrocodone Bit/Acetaminophen 5-325* ([place] 5-325 Tablet*), 1 TAB ORAL Q4H PRN for For Pain, (Reported) Patient History History Provided By: Patient Healthcare decision maker Resuscitation status Advanced Directive on File Family History Family History: In first degree relatives is unremarkable Social History Social History: (1) No significant social history Review of Systems ROS Narrative CONSTITUTIONAL: No weight loss, + fever, +chills, no weakness or fatigue. HEENT: Eyes: No visual loss, blurred vision, double vision or yellow sclerae. Ears, Nose, Throat: No hearing loss, sneezing, congestion, runny nose or sore throat. SKIN: +rash along L thigh CARDIOVASCULAR: No chest pain, chest pressure or chest discomfort. No palpitations or edema. RESPIRATORY: No shortness of breath, cough or sputum. GASTROINTESTINAL: No anorexia, nausea, vomiting or diarrhea. No abdominal pain or blood. NEUROLOGICAL: No headache, dizziness, syncope, paralysis, ataxia, numbness or tingling in the extremities. No change in bowel or bladder control. MUSCULOSKELETAL: No muscle, back pain, joint pain or stiffness. HEMATOLOGIC: No anemia, bleeding or bruising. LYMPHATICS: No enlarged nodes. No history of splenectomy. PSYCHIATRIC: No history of depression or anxiety. ENDOCRINOLOGIC: No reports of sweating, cold or heat intolerance. No polyuria or polydipsia. ALLERGIES: No history of asthma, hives, eczema or rhinitis. Physical Exam Physical Exam Narrative General: alert, cooperative, no distress, appears stated age Head: normocephalic, without obvious abnormality, atraumatic Eyes: conjunctivae/corneas clear. PERRL, EOM's intact Throat: lips, mucosa, and tongue normal. MMM Neck: supple, symmetrical, trachea midline, and no JVD Lungs: clear to auscultation bilaterally Heart: regular rate and rhythm, S1, S2 normal, no murmur, click, rub or gallop Abdomen: soft, non-tender, non-distended, bowel sounds normal; no masses or organomegaly Extremities: large area of erythema on L thigh, no induration/fluctuance, +rubor , +tenderness to palpation Pulses: 2+ and symmetric Skin: skin color, texture, turgor normal; no rashes or lesions Neurologic: grossly normal, no focal deficits Last 24 Hour Vital Signs Date Time Temp Pulse Resp B/P Pulse Ox O2 Delivery O2 Flow Rate FiO2 12/20/16 12:21 99.7 100 20 110/69 100 Room Air Height (Feet): 5 Height (Inches): 2.00 Weight (Pounds): 140 Medications Current Medications Medications (Trade) Dose Ordered Sig/Javier Route PRN Reason Start Time Stop Time Status Last Admin Dose Admin Piperacillin Sod/ Tazobactam Sod/ Sodium Chloride (Zosyn/Sodium Chloride) 110 ml @ 220 mls/hr ONCE ONCE IVPB 12/20/16 13:30 12/20/16 13:59 Vancomycin HCl 1 gm/Dextrose 275 ml @ 183.708 mls/hr ONCE ONCE IVPB 12/20/16 13:30 12/20/16 14:59 Assessment/Plan Problem List: (1) Cellulitis of left thigh Assessment & Plan: Admit to inpatient Check blood cultures Start IV vancomycin/zosyn IV fluids ID consultation Pain control Supp care Surgical consultation ICD Codes: L03.116 - Cellulitis of left lower limb SNOMED: [id number] COLT GARCIA Dec 20, 2016 13:46
[2016-12-20 14:05] VITALS: BP 115/70
[2016-12-20] MEDS ORDERED: Vancomycin 1gm inj IVPB ONE (14:14)
[2016-12-20] MEDS ORDERED: Zosyn 3.375gm inj ONE (14:15)
[2016-12-20 14:21] LABS: MEAN CORPUSCULAR HEMOGLOBIN 30.9 PG (27.0-31.0); MEAN CORPUSCULAR HGB CONC 32.2 G/DL (32.0-36.0); MEAN CORPUSCULAR VOLUME 96 FL (80-99); MEAN PLATELET VOLUME 6.3 FL (6.5-10.1); PLATELET COUNT 287 K/UL (150-450); RED BLOOD COUNT 3.83 M/UL (4.20-5.40); RED CELL DISTRIBUTION WIDTH 12.4 % (11.6-14.8); WHITE BLOOD COUNT 16.7 K/UL (4.8-10.8)
[2016-12-20 14:33] LABS: INR 1.3 (0.9-1.1); PROTHROMBIN TIME 13.3 SEC (9.30-11.50)
[2016-12-20 14:35] LABS: ALANINE AMINOTRANSFERASE 31 U/L (3-33); ALBUMIN/GLOBULIN RATIO 1.2 (1.0-2.7); ANION GAP 17 (5-15); ASPARTATE AMINO TRANSFERASE 24 U/L (5-40); CALCIUM 9.2 mg/dL (8.6-10.2); CARBON DIOXIDE 23 mEQ/L (20-30); CHLORIDE 95 mEQ/L (98-107); GLOMERULAR FILTRATION RATE > 60 mL/min (>60); HEMOLYSIS 2; POTASSIUM 3.8 mEQ/L (3.4-4.9); SODIUM 135 mEQ/L (135-145); TOTAL PROTEIN 7.2 g/dL (6.6-8.7)
[2016-12-20 14:45] LABS: BAND NEUTROPHILS % (MANUAL) 3 % (0-8); BASOPHILS % (MANUAL) 0 % (0-2); EOSINOPHILS % (MANUAL) 0 % (0-3); LYMPHOCYTES % (MANUAL) 3 % (20-45); NEUTROPHILS % (MANUAL) 92 % (45-75); PLATELET ESTIMATE ADEQUATE; PLATELET MORPHOLOGY NORMAL; TOTAL CELLS COUNTED 100
[2016-12-20 14:46] LABS: HYPOCHROMASIA 1+
--- NOTE | 2016-12-20 16:45 | Emergency Room Report ---
History of Present Illness General Chief Complaint: Skin Rash/Abscess Source: Patient (MOE MAYS) Present Illness HPI The patient is a 36-year-old female presenting with left leg pain and redness which began 2 days prior. The patient was discharged from this hospital 3 weeks prior for wound dehiscence. At the onset of symptoms, the patient spoke with her PMD who placed her on Bactrim but the patient states it was hard for her to keep this medication down. the redness has been increasing in size daily. Pain is described as a 2/10 tightness and does not radiate from the left leg. Pain worse with touch. Patient also admits to subjective fevers and chills and has been taking Tylenol which does help. The patient was advised to come to the emergency department by her PMD for IV antibiotics and further care. The patient denies other symptoms including VILLA, blurred vision, neck pain , SOB, CP, abd pain, diarrhea, constipation (MOE MAYS) Allergies: Coded Allergies: No Known Allergies (Unverified , 11/26/16) Patient History Past Medical History: see triage record Pertinent Family History: none Last Menstrual Period: 11/29/2016 Now: No Reviewed Nursing Documentation: PMH: Agreed, PSxH: Agreed (MOE MAYS) Nursing Documentation-PMH Past Medical History: No History, Except For Hx Cardiac Problems: No - metal implants Hx Cancer: No Hx Neurological Problems: No (MOE MAYS) Review of Systems All Other Systems: negative except mentioned in HPI (MOE MAYS) Physical Exam Vital Signs Date Time Temp Pulse Resp B/P Pulse Ox O2 Delivery O2 Flow Rate FiO2 12/20/16 12:21 99.7 100 20 110/69 100 Room Air Sp02 EP Interpretation: reviewed, normal General Appearance: no apparent distress, alert, GCS 15, non-toxic Head: normocephalic, atraumatic Eyes: bilateral eye PERRL, bilateral eye normal inspection ENT: hearing grossly normal, normal pharynx, no angioedema, normal voice Respiratory: chest non-tender, lungs clear, normal breath sounds, speaking full sentences Genitourinary: normal inspection, no CVA tenderness Musculoskeletal: back normal, gait/station normal, normal range of motion Neurologic: alert, oriented x3, responsive, motor strength/tone normal, sensory intact, speech normal Psychiatric: judgement/insight normal, memory normal, mood/affect normal, no suicidal/homicidal ideation Skin: rash - Diffuse erythema from left inguinal region to the medial left thigh. Tender to palpation. Hot to the touch. Lymphatic: no adenopathy (MOE MAYS) Medical Decision Making PA Attestation Dr. Maria is my supervising physician. Patient management was discussed with my supervising physician (MOE MAYS) Diagnostic Impression: Primary Impression: Cellulitis of left thigh ER Course Patient is a 36-year-old female presenting for left leg cellulitis Ddx considered include but not limited to insect bite, contact dermatitis, eczema, cellulitis, adverse drug reaction Physical exam: Afebrile. No apparent distress. Patient resting comfortably on the gurney. Left leg: There is diffuse erythema from the left inguinal region to the distal medial thigh. This area is tender, edematous, and hot to the touch. Skin is intact. No fluctuance. CBC shows leukocytosis of 16.9 with left shift. Otherwise unremarkable. CMP unremarkable The patient is started on IV fluids and was given IV Zosyn and vancomycin as recommended by Dr. Cook. The patient is given Tylenol for pain Dr. Cook has come down to the emergency department to see the patient. Plan discussed with him. The patient will be admitted in stable condition Laboratory Tests Test 12/20/16 14:05 White Blood Count 16.7 K/UL (4.8-10.8) H Red Blood Count 3.83 M/UL (4.20-5.40) L Hemoglobin 11.8 G/DL (12.0-16.0) L Hematocrit 36.8 % (37.0-47.0) L Mean Corpuscular Volume 96 FL (80-99) Mean Corpuscular Hemoglobin 30.9 PG (27.0-31.0) Mean Corpuscular Hemoglobin Concent 32.2 G/DL (32.0-36.0) Red Cell Distribution Width 12.4 % (11.6-14.8) Platelet Count 287 K/UL (150-450) Mean Platelet Volume 6.3 FL (6.5-10.1) L Neutrophils (%) (Auto) % (45.0-75.0) Lymphocytes (%) (Auto) % (20.0-45.0) Monocytes (%) (Auto) % (1.0-10.0) Eosinophils (%) (Auto) % (0.0-3.0) Basophils (%) (Auto) % (0.0-2.0) Differential Total Cells Counted 100 Neutrophils % (Manual) 92 % (45-75) H Lymphocytes % (Manual) 3 % (20-45) L Monocytes % (Manual) 2 % (1-10) Eosinophils % (Manual) 0 % (0-3) Basophils % (Manual) 0 % (0-2) Band Neutrophils 3 % (0-8) Platelet Estimate Adequate Platelet Morphology Normal Hypochromasia 1+ Prothrombin Time 13.3 SEC (9.30-11.50) H Prothrombin Time INR 1.3 (0.9-1.1) H PTT 28 SEC (23-33) Sodium Level 135 mEQ/L (135-145) Potassium Level 3.8 mEQ/L (3.4-4.9) Chloride Level 95 mEQ/L (98-107) L Carbon Dioxide Level 23 mEQ/L (20-30) Anion Gap 17 (5-15) H Blood Urea Nitrogen 11 mg/dL (7-23) Creatinine 1.0 mg/dL (0.5-0.9) H Estimate Glomerular Filtration Rate > 60 mL/min (>60) Glucose Level 109 mg/dL (74-106) H Calcium Level 9.2 mg/dL (8.6-10.2) Total Bilirubin 0.3 mg/dL (0.0-1.2) Aspartate Amino Transferase (AST) 24 U/L (5-40) Alanine Aminotransferase (ALT) 31 U/L (3-33) Alkaline Phosphatase 67 U/L (35-104) Total Protein 7.2 g/dL (6.6-8.7) Albumin 4.0 g/dL (3.5-5.2) Globulin 3.2 g/dL Albumin/Globulin Ratio 1.2 (1.0-2.7) Lab Results Impression CBC shows leukocytosis with left shift. Otherwise unremarkable. CMP unremarkable (MOE MAYS.A.) ER Course Patient examined by me. I agree with treatment plan. Discussed with Dr. Clinton. Good analgesia with tylenol. Patient refused further treatment with pain medication. Antibiotics begun. (Garcia Maria M.D.) Last Vital Signs Date Time Temp Pulse Resp B/P Pulse Ox O2 Delivery O2 Flow Rate FiO2 12/20/16 14:05 99.6 94 16 115/70 99 Room Air Status: improved (MOE MAYS) Last Vital Signs Date Time Temp Pulse Resp B/P Pulse Ox O2 Delivery O2 Flow Rate FiO2 12/20/16 20:02 99.6 12/20/16 17:41 72 14 109/55 100 Room Air Status: improved (Garcia Maria M.D.) Disposition: ADMITTED INPATIENT Condition: Serious Referrals: NON PHYSICIAN (PCP) MOE MAYS Dec 20, 2016 16:45 Garcia Maria M.D. Dec 20, 2016 21:33
[2016-12-20 16:50] VITALS: BP 109/55
[2016-12-20 18:40] VITALS: BP 106/64
[2016-12-20 20:00] VITALS: BP 109/62
[2016-12-20] MEDS: Heparin 5000 units/ml inj SUBQ SCH (21:36)
[2016-12-20] MEDS: Piperacillin/Tazobactam 3.375 GM in NS 110 ML IVPB SCH (21:37)
[2016-12-21] VITALS: BP 95/63
[2016-12-21] MEDS: Vancomycin 1250mg/D5W 275ml IVPB SCH ×2 (01:21)
[2016-12-21 04:00] VITALS: BP 98/62
[2016-12-21] MEDS: Piperacillin/Tazobactam 3.375 GM in NS 110 ML IVPB SCH ×3 (05:56→22:07)
[2016-12-21 08:03] VITALS: BP 90/53
[2016-12-21] MEDS: Heparin 5000 units/ml inj SUBQ SCH ×2 (09:04→21:00)
--- NOTE | 2016-12-21 09:22 | General Progress Note ---
Progress Note Progress Note Pt seen and examined. Admitted yesterday for left thigh cellulitis. She is 5 weeks s/p abdominoplasty and bilateral medial thighlifts. WBC at 16.5 yesterday and started on IV Vanco and Zosyn Exam: Abdomen and right thigh/groin healing very well with no sign of infection. Cellulitis is mildly improved as compared to yesterday. Nontender and no drainage from suture lines or open area in the left thigh Plan: ID consult Continue IV abx and awaiting culture results Will get PICC line in AM Consider left thigh CT scan if cellulitis not much better over next 48 hours. Repeat CBC in AM MERCEDEZ Agrawal Dec 21, 2016 09:22
[2016-12-21 10:35] LABS: BASOPHILS % (AUTO) 0.8 % (0.0-2.0); EOSINOPHILS % (AUTO) 1.6 % (0.0-3.0); LYMPHOCYTES % (AUTO) 13.7 % (20.0-45.0); MEAN CORPUSCULAR HEMOGLOBIN 31.2 PG (27.0-31.0); MEAN CORPUSCULAR HGB CONC 32.6 G/DL (32.0-36.0); MEAN CORPUSCULAR VOLUME 96 FL (80-99); MEAN PLATELET VOLUME 6.5 FL (6.5-10.1); MONOCYTES % (AUTO) 8.4 % (1.0-10.0); NEUTROPHILS % (AUTO) 75.6 % (45.0-75.0); PLATELET COUNT 230 K/UL (150-450); RED BLOOD COUNT 3.32 M/UL (4.20-5.40); RED CELL DISTRIBUTION WIDTH 12.3 % (11.6-14.8); WHITE BLOOD COUNT 7.9 K/UL (4.8-10.8)
[2016-12-21 11:00] LABS: ANION GAP 13 (5-15); CALCIUM 8.6 mg/dL (8.6-10.2); CARBON DIOXIDE 22 mEQ/L (20-30); CHLORIDE 101 mEQ/L (98-107); CREATININE 0.8 mg/dL (0.5-0.9); GLOMERULAR FILTRATION RATE > 60 mL/min (>60); HEMOLYSIS 3; POTASSIUM 4.2 mEQ/L (3.4-4.9); SODIUM 136 mEQ/L (135-145)
[2016-12-21] MEDS ORDERED: Tubing IV Secondary IV ONE (11:41)
[2016-12-21 11:47] VITALS: BP 101/54
--- NOTE | 2016-12-21 14:12 | General Progress Note ---
Assessment/Plan Problem List: (1) Cellulitis of left thigh Assessment & Plan: Improving on IV abx f/u blood cultures Cont IV vancomycin/zosyn IV fluids ID consultation today Pain control Supp care Apprec Surgical consultation ICD Codes: L03.116 - Cellulitis of left lower limb SNOMED: [id number] Subjective Date patient seen: Dec 21, 2016 Time patient seen: 14:10 ROS Limited/Unobtainable: No Allergies: Coded Allergies: No Known Allergies (Unverified , 11/26/16) Subjective No acute overnight events, temp of >101, no further chills, thinks L thigh tenderness and redness is better Objective Last 24 Hour Vital Signs Date Time Temp Pulse Resp B/P Pulse Ox O2 Delivery O2 Flow Rate FiO2 12/21/16 12:05 97.9 12/21/16 11:47 97.9 75 18 101/54 98 Room Air 12/21/16 08:03 97.9 63 20 90/53 98 Room Air 12/21/16 04:00 98.1 67 18 98/62 99 Room Air 12/21/16 00:00 98.2 67 18 95/63 99 Room Air 12/21/16 00:00 98.2 67 18 95/63 99 Room Air 12/20/16 20:00 100.9 75 16 109/62 98 Room Air 12/20/16 18:40 100.0 85 16 106/64 100 Room Air 12/20/16 17:41 99.0 72 14 109/55 100 Room Air 12/20/16 17:08 99.0 12/20/16 16:50 99.0 72 14 109/55 100 Room Air Intake and Output 12/20/16 12/21/16 19:00 07:00 Intake Total 0 ml 924.166 ml Balance 0 ml 924.166 ml Intake Oral 0 ml 120 ml IV Total 804.166 ml Laboratory Tests 12/21/16 09:45: White Blood Count 7.9#, Red Blood Count 3.32L, Hemoglobin 10.4L, Hematocrit 31.8L, Mean Corpuscular Volume 96, Mean Corpuscular Hemoglobin 31.2H, Mean Corpuscular Hemoglobin Concent 32.6, Red Cell Distribution Width 12.3, Platelet Count 230, Mean Platelet Volume 6.5, Neutrophils (%) (Auto) 75.6H, Lymphocytes ( %) (Auto) 13.7L, Monocytes (%) (Auto) 8.4, Eosinophils (%) (Auto) 1.6, Basophils (%) (Auto) 0.8, Sodium Level 136, Potassium Level 4.2, Chloride Level 101, Carbon Dioxide Level 22, Anion Gap 13, Blood Urea Nitrogen 8, Creatinine 0.8, Estimat Glomerular Filtration Rate > 60, Glucose Level 97, Calcium Level 8.6 Height (Feet): 5 Height (Inches): 2.00 Weight (Pounds): 140 Objective General: alert, cooperative, no distress, appears stated age Head: normocephalic, without obvious abnormality, atraumatic Eyes: conjunctivae/corneas clear. PERRL, EOM's intact Throat: lips, mucosa, and tongue normal. MMM Neck: supple, symmetrical, trachea midline, and no JVD Lungs: clear to auscultation bilaterally Heart: regular rate and rhythm, S1, S2 normal, no murmur, click, rub or gallop Abdomen: soft, non-tender, non-distended, bowel sounds normal; no masses or organomegaly Extremities: extremities normal, atraumatic, no cyanosis or edema- erythema on L thigh less violaceous, not exceeded prior borders, less rubor, less tenderness Pulses: 2+ and symmetric Skin: skin color, texture, turgor normal; no rashes or lesions Neurologic: grossly normal, no focal deficits COLT GARCIA Dec 21, 2016 14:12
[2016-12-21 16:00] VITALS: BP 102/56
[2016-12-21 20:00] VITALS: BP 104/59
--- NOTE | 2016-12-21 21:21 | Infectious Diseases Prog Note ---
Assessment/Plan Assessment/Plan Full consult to follow: A) 1) left leg/thigh cellulitis with leukocytosis 2) bilateral thigh/leg and abdominal wound infection with cellulitis - s/p debridement and abx 3) s/p tummy tuck and thigh lift 4) allergies - negative P) 1) continue vancomycin and zosyn 2) check wound culture 3) watch labs 4) continue treatment per Dr. Clinton and Dr. Lux 5) wound care 6) d/w Dr. Clinton, patient and mother 7) thank you Subjective Allergies: Coded Allergies: No Known Allergies (Unverified , 11/26/16) Objective Vital Signs Last 24 Hour Vital Signs Date Time Temp Pulse Resp B/P Pulse Ox O2 Delivery O2 Flow Rate FiO2 12/21/16 20:07 97.9 12/21/16 16:00 97.9 70 18 102/56 98 Room Air 12/21/16 11:47 97.9 75 18 101/54 98 Room Air 12/21/16 08:03 97.9 63 20 90/53 98 Room Air 12/21/16 04:00 98.1 67 18 98/62 99 Room Air 12/21/16 00:00 98.2 67 18 95/63 99 Room Air 12/21/16 00:00 98.2 67 18 95/63 99 Room Air Height (Feet): 5 Height (Inches): 2.00 Weight (Pounds): 140 Microbiology Date/Time Source Procedure Growth Status 12/20/16 17:28 Wound Gram Stain - Final Resulted 12/20/16 17:28 Wound Wound Culture - Preliminary NO GROWTH AFTER 24 HOURS Resulted Laboratory Tests Test 12/21/16 09:45 White Blood Count 7.9 K/UL (4.8-10.8) # Red Blood Count 3.32 M/UL (4.20-5.40) L Hemoglobin 10.4 G/DL (12.0-16.0) L Hematocrit 31.8 % (37.0-47.0) L Mean Corpuscular Volume 96 FL (80-99) Mean Corpuscular Hemoglobin 31.2 PG (27.0-31.0) H Mean Corpuscular Hemoglobin Concent 32.6 G/DL (32.0-36.0) Red Cell Distribution Width 12.3 % (11.6-14.8) Platelet Count 230 K/UL (150-450) Mean Platelet Volume 6.5 FL (6.5-10.1) Neutrophils (%) (Auto) 75.6 % (45.0-75.0) H Lymphocytes (%) (Auto) 13.7 % (20.0-45.0) L Monocytes (%) (Auto) 8.4 % (1.0-10.0) Eosinophils (%) (Auto) 1.6 % (0.0-3.0) Basophils (%) (Auto) 0.8 % (0.0-2.0) Sodium Level 136 mEQ/L (135-145) Potassium Level 4.2 mEQ/L (3.4-4.9) Chloride Level 101 mEQ/L (98-107) Carbon Dioxide Level 22 mEQ/L (20-30) Anion Gap 13 (5-15) Blood Urea Nitrogen 8 mg/dL (7-23) Creatinine 0.8 mg/dL (0.5-0.9) Estimat Glomerular Filtration Rate > 60 mL/min (>60) Glucose Level 97 mg/dL (74-106) Calcium Level 8.6 mg/dL (8.6-10.2) Current Medications Medications (Trade) Dose Ordered Sig/Javier Route PRN Reason Start Time Stop Time Status Last Admin Dose Admin Acetaminophen (Tylenol) 650 mg Q4H PRN ORAL Mild Pain/FEVER 12/20/16 13:45 01/19/17 13:44 12/21/16 19:08 Al Hydroxide/Mg Hydroxide (Mylanta II) 30 ml Q6H PRN ORAL dyspepsia 12/20/16 13:45 01/19/17 13:44 Bisacodyl (Dulcolax) 10 mg HSPRN PRN RECTAL Constipation 12/20/16 13:45 01/19/17 13:44 Dextrose (Dextrose 50%) STAT PRN IV Hypoglycemia 12/20/16 13:45 01/19/17 13:44 Diphenhydramine HCl (Benadryl) 25 mg Q6H PRN ORAL Itching/Pruritis 12/20/16 13:45 01/19/17 13:44 Heparin Sodium (Porcine) (Heparin 5000 units/ml) 5,000 units EVERY 12 HOURS SUBQ 12/20/16 21:00 01/19/17 20:59 12/21/16 09:04 Lorazepam (Ativan 2mg/ml 1ml) 0.5 mg Q4H PRN IV For Anxiety 12/20/16 13:45 12/27/16 13:44 Magnesium Hydroxide (Mom) 30 ml HSPRN PRN ORAL Constipation 12/20/16 13:45 01/19/17 13:44 Morphine Sulfate (Morphine Sulfate) 2 mg Q4HR PRN IVP Moderate Pain (Pain Scale 4-6) 12/20/16 13:45 12/27/16 13:44 Morphine Sulfate (Morphine Sulfate) 4 mg Q4HR PRN IVP Severe Pain (Pain Scale 7-10) 12/20/16 13:45 12/27/16 13:44 Ondansetron HCl (Zofran) 4 mg Q6H PRN IVP Nausea & Vomiting 12/20/16 13:45 01/19/17 13:44 12/20/16 19:44 Piperacillin Sod/ Tazobactam Sod 3.375 gm/Sodium Chloride 110 ml @ 27.5 mls/hr Q8HR IVPB 12/20/16 22:00 12/27/16 21:59 12/21/16 13:43 Polyethylene Glycol (Miralax) 17 gm HSPRN PRN ORAL Constipation 12/20/16 13:45 01/19/17 13:44 Sodium Chloride (Sodium Chloride 1000ml bag) 1,000 ml @ 100 mls/hr Q10H IVLG 12/20/16 18:00 01/19/17 17:59 12/21/16 05:59 Temazepam (Restoril) 15 mg HSPRN PRN ORAL Insomnia 12/20/16 13:45 12/27/16 13:44 12/20/16 21:33 Vancomycin HCl 1 ea 1 ea DAILY PRN MISC Per rx protocol 12/20/16 13:45 01/19/17 13:44 Vancomycin HCl/ Dextrose (Vancomycin/D5W) 275 ml @ 183.333 mls/hr Q24H IVPB 12/21/16 02:00 12/26/16 01:59 12/21/16 01:21 ZULEMA NATHAN 12, 2017 21:21
[2016-12-22] VITALS: BP 89/58
[2016-12-22] MEDS: Vancomycin 1250mg/D5W 275ml IVPB SCH ×2 (01:37)
[2016-12-22 04:00] VITALS: BP 111/77
[2016-12-22 05:19] LABS: BASOPHILS % (AUTO) 1.4 % (0.0-2.0); EOSINOPHILS % (AUTO) 7.9 % (0.0-3.0); LYMPHOCYTES % (AUTO) 25.9 % (20.0-45.0); MEAN CORPUSCULAR HEMOGLOBIN 31.6 PG (27.0-31.0); MEAN CORPUSCULAR HGB CONC 33.1 G/DL (32.0-36.0); MEAN CORPUSCULAR VOLUME 96 FL (80-99); MONOCYTES % (AUTO) 12.4 % (1.0-10.0); NEUTROPHILS % (AUTO) 52.5 % (45.0-75.0); PLATELET COUNT 247 K/UL (150-450); RED BLOOD COUNT 3.31 M/UL (4.20-5.40); RED CELL DISTRIBUTION WIDTH 12.8 % (11.6-14.8); WHITE BLOOD COUNT 6.1 K/UL (4.8-10.8)
[2016-12-22] MEDS: Piperacillin/Tazobactam 3.375 GM in NS 110 ML IVPB SCH ×3 (06:25→22:05)
[2016-12-22 08:00] VITALS: BP 104/70
[2016-12-22] MEDS: Heparin 5000 units/ml inj SUBQ SCH ×2 (09:00→21:00)
[2016-12-22] MEDS ORDERED: Heparin 2000 units/Ns 1000ml INJ ONE (11:00)
[2016-12-22] MEDS ORDERED: Lidocaine 1% Plain 30 ml INJ ONE (11:00)
[2016-12-22] MEDS ORDERED: Sodium Bicarbonate 8.4% 50ml Inj IV ONE (11:00)
[2016-12-22 12:00] VITALS: BP 97/60
--- NOTE | 2016-12-22 13:32 | Diagnostic Imaging Report ---
Indications: Needs long-term IV access Technique: Ultrasound confirms patent compressible left basilic vein. Total sterile technique, including sterile probe cover and sterile gel, hat, mask,, sterile gown, large sterile drape, and preparation with 2% chlorhexidine utilized. Local anesthesia with 1% lidocaine. Under real-time ultrasound guidance, puncture basilic vein using 21-gauge needle, documented and archived, passage 0.018 guidewire under direct fluoroscopy, which was used to determine appropriate catheter length, exchange for 5 Swedish peel-away sheath. 5 Swedish Bard dual-lumen power PICC cut to 40 cm. It was inserted through the peel-away sheath. Peel-away sheath and guidewire removed. Catheter fixed to the skin. Both catheter ports aspirated and flushed. Patient tolerated procedure well, without immediate complication. Digital radiograph documents satisfactory catheter tip position, at the cavoatrial junction. Total fluoroscopy time 0.3 minutes. Total dose area product 2.4 dGycm2 Impression: Successful placement of left arm PICC under sonographic and fluoroscopic guidance, as described above.
--- NOTE | 2016-12-22 14:44 | Infectious Diseases Prog Note ---
Assessment/Plan Assessment/Plan A) 1) left leg/thigh cellulitis with leukocytosis - improved, coag neg staph wound culture is likely contaminant 2) bilateral thigh/leg and abdominal wound infection with cellulitis - s/p debridement and abx 3) s/p tummy tuck and thigh lift 4) allergies - negative 5) fh-nc, sh-negative 6) mar noted, notes and records reviewed 7) d/w RN P) 1) continue vancomycin and zosyn 2) check wound culture final 3) watch labs, watch cr on abx 4) continue treatment per Dr. Clinton and Dr. Lux 5) wound care per surgery 6) d/w Dr. Clinton, patient and mother 7) communicated with Dr. Lux Subjective Constitutional: Denies: fever HEENT: Denies: congestion Respiratory: Denies: shortness of breath Cardiovascular: Denies: chest pain Gastrointestinal/Abdominal: Denies: nausea, vomiting Neurologic: Denies: headache Psychiatric: Denies: depression Hematologic: Denies: bleeding Musculoskeletal: Denies: pain Allergies: Coded Allergies: No Known Allergies (Unverified , 11/26/16) Objective Vital Signs Last 24 Hour Vital Signs Date Time Temp Pulse Resp B/P Pulse Ox O2 Delivery O2 Flow Rate FiO2 12/22/16 12:00 97.3 65 20 97/60 97 Room Air 12/22/16 08:00 97.2 68 20 104/70 99 Room Air 12/22/16 04:36 98.1 12/22/16 04:00 98.1 65 20 111/77 97 Room Air 12/22/16 00:00 97.7 66 20 89/58 99 Room Air 12/21/16 20:00 98.1 72 16 104/59 97 Room Air 12/21/16 16:00 97.9 70 18 102/56 98 Room Air Height (Feet): 5 Height (Inches): 2.00 Weight (Pounds): 140 General Appearance: no acute distress HEENT: normocephalic, atraumatic, anicteric, mucous membranes moist, PERRL, EOMI, pharynx normal, supple, no JVD Respiratory/Chest: lungs clear, normal breath sounds, no respiratory distress, no accessory muscle use Cardiovascular: normal rate, regular rhythm, no gallop/murmur, no JVD Abdomen: normal bowel sounds, soft, non tender, no organomegaly, non distended Extremities: no cyanosis, other - left thigh redness much improved Skin: no rash Neurologic/Psychiatric: broth mixer II-XII grossly normal, alert, oriented x 3, responsive Lymphatic: no neck adenopathy Musculoskeletal: normal muscle bulk Objective s/p picc line placement Microbiology Date/Time Source Procedure Growth Status 12/20/16 14:20 Blood Blood Culture - Preliminary NO GROWTH AFTER 24 HOURS Resulted 12/20/16 14:05 Blood Blood Culture - Preliminary NO GROWTH AFTER 24 HOURS Resulted 12/20/16 17:28 Wound Gram Stain - Final Resulted 12/20/16 17:28 Wound Culture - Preliminary Staphylococcus Sp Coag Neg Resulted Laboratory Tests Test 12/22/16 05:10 White Blood Count 6.1 K/UL (4.8-10.8) Red Blood Count 3.31 M/UL (4.20-5.40) L Hemoglobin 10.5 G/DL (12.0-16.0) L Hematocrit 31.7 % (37.0-47.0) L Mean Corpuscular Volume 96 FL (80-99) Mean Corpuscular Hemoglobin 31.6 PG (27.0-31.0) H Mean Corpuscular Hemoglobin Concent 33.1 G/DL (32.0-36.0) Red Cell Distribution Width 12.8 % (11.6-14.8) Platelet Count 247 K/UL (150-450) Mean Platelet Volume 6.0 FL (6.5-10.1) L Neutrophils (%) (Auto) 52.5 % (45.0-75.0) Lymphocytes (%) (Auto) 25.9 % (20.0-45.0) Monocytes (%) (Auto) 12.4 % (1.0-10.0) H Eosinophils (%) (Auto) 7.9 % (0.0-3.0) H Basophils (%) (Auto) 1.4 % (0.0-2.0) Current Medications Medications (Trade) Dose Ordered Sig/Javier Route PRN Reason Start Time Stop Time Status Last Admin Dose Admin Acetaminophen (Tylenol) 650 mg Q4H PRN ORAL Mild Pain/FEVER 12/20/16 13:45 01/19/17 13:44 12/22/16 13:52 Al Hydroxide/Mg Hydroxide (Mylanta II) 30 ml Q6H PRN ORAL dyspepsia 12/20/16 13:45 01/19/17 13:44 Bisacodyl (Dulcolax) 10 mg HSPRN PRN RECTAL Constipation 12/20/16 13:45 01/19/17 13:44 Dextrose (Dextrose 50%) STAT PRN IV Hypoglycemia 12/20/16 13:45 01/19/17 13:44 Diphenhydramine HCl (Benadryl) 25 mg Q6H PRN ORAL Itching/Pruritis 12/20/16 13:45 01/19/17 13:44 Heparin Sodium (Porcine) (Heparin 5000 units/ml) 5,000 units EVERY 12 HOURS SUBQ 12/20/16 21:00 01/19/17 20:59 12/21/16 09:04 Lorazepam (Ativan 2mg/ml 1ml) 0.5 mg Q4H PRN IV For Anxiety 12/20/16 13:45 12/27/16 13:44 Magnesium Hydroxide (Mom) 30 ml HSPRN PRN ORAL Constipation 12/20/16 13:45 01/19/17 13:44 Morphine Sulfate (Morphine Sulfate) 2 mg Q4HR PRN IVP Moderate Pain (Pain Scale 4-6) 12/20/16 13:45 12/27/16 13:44 Morphine Sulfate (Morphine Sulfate) 4 mg Q4HR PRN IVP Severe Pain (Pain Scale 7-10) 12/20/16 13:45 12/27/16 13:44 Ondansetron HCl (Zofran) 4 mg Q6H PRN IVP Nausea & Vomiting 12/20/16 13:45 01/19/17 13:44 12/20/16 19:44 Piperacillin Sod/ Tazobactam Sod 3.375 gm/Sodium Chloride 110 ml @ 27.5 mls/hr Q8HR IVPB 12/20/16 22:00 12/27/16 21:59 12/22/16 13:57 Polyethylene Glycol (Miralax) 17 gm HSPRN PRN ORAL Constipation 12/20/16 13:45 01/19/17 13:44 Sodium Chloride (Sodium Chloride 1000ml bag) 1,000 ml @ 100 mls/hr Q10H IVLG 12/20/16 18:00 01/19/17 17:59 12/21/16 05:59 Temazepam (Restoril) 15 mg HSPRN PRN ORAL Insomnia 12/20/16 13:45 12/27/16 13:44 12/21/16 21:41 Vancomycin HCl 1 ea 1 ea DAILY PRN MISC Per rx protocol 12/20/16 13:45 01/19/17 13:44 Vancomycin HCl/ Dextrose (Vancomycin/D5W) 275 ml @ 183.333 mls/hr Q24H IVPB 12/21/16 02:00 12/26/16 01:59 12/22/16 01:37 ZULEMA NATHAN Dec 22, 2016 14:44
[2016-12-22 16:10] VITALS: BP 100/60
--- NOTE | 2016-12-22 17:52 | General Progress Note ---
Assessment/Plan Problem List: (1) Cellulitis of left thigh Assessment & Plan: Improving on IV abx f/u blood cultures Cont IV vancomycin/zosyn IV fluids ID consultation input appreciated Pain control Supp care Apprec Surgical consultation ICD Codes: L03.116 - Cellulitis of left lower limb SNOMED: [id number] Subjective Date patient seen: Dec 22, 2016 Time patient seen: 17:50 ROS Limited/Unobtainable: No Allergies: Coded Allergies: No Known Allergies (Unverified , 11/26/16) Subjective No acute overnight events, afebrile, no further chills, thinks L thigh tenderness and redness is better, seen by ID Objective Last 24 Hour Vital Signs Date Time Temp Pulse Resp B/P Pulse Ox O2 Delivery O2 Flow Rate FiO2 12/22/16 16:10 97.7 77 19 100/60 98 Room Air 12/22/16 12:00 97.3 65 20 97/60 97 Room Air 12/22/16 08:00 97.2 68 20 104/70 99 Room Air 12/22/16 04:36 98.1 12/22/16 04:00 98.1 65 20 111/77 97 Room Air 12/22/16 00:00 97.7 66 20 89/58 99 Room Air 12/21/16 20:00 98.1 72 16 104/59 97 Room Air Intake and Output 12/21/16 12/22/16 19:00 07:00 Intake Total 940 ml 995 ml Balance 940 ml 995 ml Intake Oral 540 ml 120 ml IV Total 400 ml 875 ml # Voids 2 1 # Bowel Movements 1 Laboratory Tests 12/22/16 05:10: White Blood Count 6.1, Red Blood Count 3.31L, Hemoglobin 10.5L, Hematocrit 31.7L , Mean Corpuscular Volume 96, Mean Corpuscular Hemoglobin 31.6H, Mean Corpuscular Hemoglobin Concent 33.1, Red Cell Distribution Width 12.8, Platelet Count 247, Mean Platelet Volume 6.0L, Neutrophils (%) (Auto) 52.5, Lymphocytes ( %) (Auto) 25.9, Monocytes (%) (Auto) 12.4H, Eosinophils (%) (Auto) 7.9H, Basophils (%) (Auto) 1.4 Height (Feet): 5 Height (Inches): 2.00 Weight (Pounds): 140 Objective General: alert, cooperative, no distress, appears stated age Head: normocephalic, without obvious abnormality, atraumatic Eyes: conjunctivae/corneas clear. PERRL, EOM's intact Throat: lips, mucosa, and tongue normal. MMM Neck: supple, symmetrical, trachea midline, and no JVD Lungs: clear to auscultation bilaterally Heart: regular rate and rhythm, S1, S2 normal, no murmur, click, rub or gallop Abdomen: soft, non-tender, non-distended, bowel sounds normal; no masses or organomegaly Extremities: extremities normal, atraumatic, no cyanosis or edema- erythema on L thigh less violaceous, not exceeded prior borders, less rubor, less tenderness Pulses: 2+ and symmetric Skin: skin color, texture, turgor normal; no rashes or lesions Neurologic: grossly normal, no focal deficits COLT GARCIA Dec 22, 2016 17:52
[2016-12-22] MEDS ORDERED: NS Irrig 1000ml ONE (18:59)
[2016-12-22 20:35] VITALS: BP 118/75
[2016-12-23 00:47] VITALS: BP 95/67
[2016-12-23] MEDS: Vancomycin 1250mg/D5W 275ml IVPB SCH ×2 (02:00)
[2016-12-23 02:16] LABS: ANION GAP 12 (5-15); CALCIUM 8.2 mg/dL (8.6-10.2); CARBON DIOXIDE 23 mEQ/L (20-30); CHLORIDE 108 mEQ/L (98-107); CREATININE 0.6 mg/dL (0.5-0.9); GLOMERULAR FILTRATION RATE > 60 mL/min (>60); HEMOLYSIS 2; POTASSIUM 4.1 mEQ/L (3.4-4.9); SODIUM 143 mEQ/L (135-145)
--- NOTE | 2016-12-23 02:48 | Consultation ---
DATE OF CONSULTATION: NOTE: POOR AUDIO QUALITY CONSULTING PHYSICIAN: Geovani Newberry M.D. ATTENDING PHYSICIAN: Kylah Clinton M.D. I was asked by Dr. Clinton to see this patient. REASON FOR CONSULTATION: Left leg cellulitis and elevated white count and fevers. CHIEF COMPLAINT: The patient's chief complaint coming in is left leg cellulitis. HISTORY OF PRESENT ILLNESS: This is a very pleasant 36-year-old female, who has a history of recent surgery and is status post tummy tuck and thigh lift. The patient had recent wound infection and was given antibiotics IV and then PO including cefdinir and Bactrim per my records. The patient was noted to have left leg redness and swelling. The patient comes into [facility] for left leg and thigh cellulitis, mostly in the left thigh and left leg. Infectious diseases consultation is requested for antibiotic management. The patient is on vancomycin and Zosyn and the cellulitis of left thigh and leg has improved. Infectious diseases consultation was requested for antibiotic management of this patient with left thigh and leg cellulitis. I reviewed the records. The patient's wound is covered. Case discussed with Dr. Clinton and communicated with Dr. Lux. Case discussed with patient and mother. PAST MEDICAL HISTORY: Includes history of tummy tuck and thigh lift surgery. Otherwise, no history of diabetes or hypertension. No other significant past medical history. MEDICATIONS: Upon reviewing the MAR, the patient is on the following medications: She is on Tylenol, morphine, bisacodyl, MOM, MiraLAX, Zofran, Ativan, Restoril, Benadryl, Mylanta, vancomycin per pharmacy and Zosyn per pharmacy and temazepam. ALLERGIES: No known drug allergies. SOCIAL HISTORY: Negative for smoking, alcohol, or drug abuse. FAMILY HISTORY: Noncontributory. REVIEW OF SYSTEMS: Constitutional: Denies weakness and fatigue. She came with fever. She has no fever or chills at this time. Head And Neck: No headache or neck pain or neck stiffness. Cardiac: No chest pain. Gastrointestinal: No nausea, vomiting, or diarrhea. Genitourinary: No Dumont. No urinary symptoms. Pulmonary: No congestion or shortness of breath. Skin: No rash or itching. Extremities: As discussed, she did came in with left thigh redness, warmth, and pain. Neurologic: No seizures. PHYSICAL EXAMINATION: GENERAL: The patient is alert and responsive, in no acute distress, oriented x3. VITAL SIGNS: Temperature 97.3 degrees, pulse rate 65, respiratory rate 20, blood pressure 97/60, and saturation 97%. Temperature on admission was 100.9. HEAD AND NECK: Oral exam, no thrush. Eye exam, no icterus. Neck is supple. Normocephalic. No facial droop. HEART: Regular. No gallop or murmur. ABDOMEN: Soft. Positive bowel sounds. Nontender. No organomegaly. LUNGS: Clear bilaterally. No rhonchi or rales. SKIN: No rash or dermatitis. MUSCULOSKELETAL/Extremity: No effusions or contractures. She has left thigh and left leg cellulitis, redness, and warmth. This has improved since I saw her yesterday and per the line markings it has improved significantly. PERIPHERAL VASCULAR: No evidence of cyanosis. GENITOURINARY: She has no Dumont. NEUROLOGIC: Intact. She has a new PICC line. Her surgical wounds and incisions are covered at this time. They have been re-dressed just recently. LABORATORY DATA: White count is 6.1, hemoglobin 10.5, and platelet count is 247,000. White count has been as high as 16.7. Creatinine is 0.8. Wound culture was done and shows coag-negative staph. Blood cultures are negative. ASSESSMENT AND PLAN: 1. The patient has left thigh/leg cellulitis. The patient also has leukocytosis and fevers on admission. Her left thigh/leg cellulitis is improving on Zosyn and vancomycin. Continue vancomycin and Zosyn and check final wound culture. Continue wound care of the surgical incisions per Dr. Oz Lux. Watch her labs and creatinine, vancomycin and Zosyn. 2. Anemia. 3. The patient is status tummy tuck and thigh lift. 4. The patient is status post bilateral thigh, leg, and abdominal wound infections, cellulitis, status post debridement and antibiotics. 5. Allergies are negative. 6. Social history is negative. 7. MAR as noted. 8. Case was discussed with RN. 9. Case was discussed with Dr. Clinton. 10. Case was discussed with the patient and her mother. Geovani Newberry M.D. DR: ISAÍAS JOB#: [id number] CC: MONA
[2016-12-23 04:00] VITALS: BP 106/69
[2016-12-23] MEDS: Piperacillin/Tazobactam 3.375 GM in NS 110 ML IVPB SCH ×3 (06:13→21:03)
[2016-12-23 08:00] VITALS: BP 106/73
--- NOTE | 2016-12-23 08:31 | General Progress Note ---
Progress Note Progress Note Pt seen and examined. HD# 3 with celluliltis. She has improved significantly with the IV abx and her WBC has normalized. Petey dillard final cultures and plan on DC home in AM. Mercedez Calderón M.D. MERCEDEZ CALDERÓN Dec 23, 2016 08:31
[2016-12-23] MEDS: Heparin 5000 units/ml inj SUBQ SCH ×2 (08:33→21:04)
[2016-12-23] MEDS: Vancomycin 1gm in D5W 275ml IVPB SCH (11:48)
[2016-12-23 12:00] VITALS: BP 100/56
--- NOTE | 2016-12-23 15:35 | General Progress Note ---
Assessment/Plan Problem List: (1) Cellulitis of left thigh Assessment & Plan: Improving on IV abx f/u blood cultures Cont IV vancomycin/zosyn IV fluids ID consultation input appreciated Pain control Supp care Apprec Surgical consultation ICD Codes: L03.116 - Cellulitis of left lower limb SNOMED: [id number] Subjective Date patient seen: Dec 23, 2016 Time patient seen: 15:34 Allergies: Coded Allergies: No Known Allergies (Unverified , 11/26/16) Subjective No acute overnight events, afebrile, no further chills, thinks L thigh tenderness and redness is better Objective Last 24 Hour Vital Signs Date Time Temp Pulse Resp B/P Pulse Ox O2 Delivery O2 Flow Rate FiO2 12/23/16 12:03 97.3 12/23/16 12:00 97.7 74 20 100/56 99 Room Air 12/23/16 08:00 97.3 67 18 106/73 100 Room Air 12/23/16 04:00 97.2 67 20 106/69 99 Room Air 12/23/16 00:47 98.1 69 21 95/67 98 Room Air 12/22/16 20:35 97.9 69 18 118/75 100 Room Air 12/22/16 16:10 97.7 77 19 100/60 98 Room Air Intake and Output 12/22/16 12/23/16 19:00 07:00 Intake Total 1100 ml 240 ml Balance 1100 ml 240 ml Intake Oral 600 ml 240 ml IV Total 500 ml # Voids 5 # Bowel Movements 2 Laboratory Tests 12/23/16 01:10: Sodium Level 143, Potassium Level 4.1, Chloride Level 108H, Carbon Dioxide Level 23, Anion Gap 12, Blood Urea Nitrogen 9, Creatinine 0.6, Estimat Glomerular Filtration Rate > 60, Glucose Level 108H, Calcium Level 8.2L 12/23/16 01:15: Vancomycin Level Trough 3.6L Height (Feet): 5 Height (Inches): 2.00 Weight (Pounds): 140 Objective General: alert, cooperative, no distress, appears stated age Head: normocephalic, without obvious abnormality, atraumatic Eyes: conjunctivae/corneas clear. PERRL, EOM's intact Throat: lips, mucosa, and tongue normal. MMM Neck: supple, symmetrical, trachea midline, and no JVD Lungs: clear to auscultation bilaterally Heart: regular rate and rhythm, S1, S2 normal, no murmur, click, rub or gallop Abdomen: soft, non-tender, non-distended, bowel sounds normal; no masses or organomegaly Extremities: extremities normal, atraumatic, no cyanosis or edema- erythema on L thigh less violaceous, not exceeded prior borders, less rubor, less tenderness Pulses: 2+ and symmetric Skin: skin color, texture, turgor normal; no rashes or lesions Neurologic: grossly normal, no focal deficits COLT GARCIA Dec 23, 2016 15:35
--- NOTE | 2016-12-23 15:37 | Discharge Summary ---
Discharge Summary Hospital Course Date of Admission Dec 20, 2016 at 14:00 Date of Discharge Dec 24, 2016 Admitting Diagnosis Cellulitis Reason for Hospitalization: as above HPI Anaid Warren is a 36 year old female who was admitted on Dec 20, 2016 at 14: 00 for Cellulitis Consultations Plastic Surgery, ID Procedures None Hospital Course 36 y/o female, admitted with L thigh cellulitis that failed outpt abx therapy. Pt placed on IV vanco/zosyn, seen by ID and her plastic surgeon, improved markedly while inpt, was dced home after d/w surgery and ID on appropriate PO abx. Discharge Medications Discontinued Medications: No Known Medications* (NKM - No Known Medications*) . 0 ., 0 Refills Discharge Condition Upon Discharge: stable Discharge Disposition Patient was discharged to home Discharge Diagnoses: (1) Cellulitis of left thigh COLT GARCIA Dec 23, 2016 15:37
[2016-12-23 16:34] VITALS: BP 103/62
[2016-12-23 20:23] VITALS: BP 109/74
--- NOTE | 2016-12-23 21:04 | Infectious Diseases Prog Note ---
Assessment/Plan Assessment/Plan A) 1) left leg/thigh cellulitis with leukocytosis - much improved, coag neg staph wound culture is likely contaminant 2) bilateral thigh/leg and abdominal wound infection with cellulitis - s/p debridement and abx 3) s/p tummy tuck and thigh lift 4) allergies - negative 5) fh-nc, sh-negative 6) mar noted, notes and records reviewed 7) d/w RN P) 1) continue vancomycin and zosyn - can discharge on oral abx tomorrow - augmentin plus doxycycline for 10 days more (2 weeks total abx) - scripts written 2) check wound culture final 3) watch labs, watch cr on abx 4) continue treatment per Dr. Clinton and Dr. Lux 5) wound care per surgery 6) d/w Dr. Clinton, patient and mother 7) communicated with Dr. Lux Subjective Constitutional: Denies: fever HEENT: Denies: congestion Respiratory: Denies: shortness of breath Cardiovascular: Denies: chest pain Gastrointestinal/Abdominal: Denies: diarrhea, nausea, vomiting Neurologic: Denies: headache Psychiatric: Denies: depression Skin: Denies: rash Hematologic: Denies: bleeding Musculoskeletal: Denies: pain Allergies: Coded Allergies: No Known Allergies (Unverified , 11/26/16) Objective Vital Signs Last 24 Hour Vital Signs Date Time Temp Pulse Resp B/P Pulse Ox O2 Delivery O2 Flow Rate FiO2 12/23/16 20:23 97.7 80 19 109/74 99 Room Air 12/23/16 16:34 98.1 81 18 103/62 99 Room Air 12/23/16 12:03 97.3 12/23/16 12:00 97.7 74 20 100/56 99 Room Air 12/23/16 08:00 97.3 67 18 106/73 100 Room Air 12/23/16 04:00 97.2 67 20 106/69 99 Room Air 12/23/16 00:47 98.1 69 21 95/67 98 Room Air Height (Feet): 5 Height (Inches): 2.00 Weight (Pounds): 140 General Appearance: no acute distress HEENT: normocephalic, atraumatic, anicteric, mucous membranes moist, PERRL, EOMI, pharynx normal, supple, no JVD Respiratory/Chest: lungs clear, normal breath sounds, no respiratory distress, no accessory muscle use Cardiovascular: normal rate, regular rhythm, no gallop/murmur, no JVD Abdomen: normal bowel sounds, soft, non tender, no organomegaly, non distended Genitourinary: other - no mcmullen Extremities: no cyanosis, other - left leg with significantly less redness Skin: no rash Neurologic/Psychiatric: 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 grossly normal, alert, oriented x 3, responsive Lymphatic: no neck adenopathy Musculoskeletal: no effusion Objective s/p picc line placement Microbiology Date/Time Source Procedure Growth Status 12/20/16 14:20 Blood Blood Culture - Preliminary NO GROWTH AFTER 48 HOURS Resulted 12/20/16 17:28 Wound Gram Stain - Final Resulted 12/20/16 17:28 Wound Culture - Preliminary Staphylococcus Sp Coag Neg Resulted Labs Test 12/21/16 09:45 12/22/16 05:10 12/23/16 01:10 12/23/16 01:15 White Blood Count 7.9 K/UL (4.8-10.8) 6.1 K/UL (4.8-10.8) Red Blood Count 3.32 M/UL (4.20-5.40) 3.31 M/UL (4.20-5.40) Hemoglobin 10.4 G/DL (12.0-16.0) 10.5 G/DL (12.0-16.0) Hematocrit 31.8 % (37.0-47.0) 31.7 % (37.0-47.0) Mean Corpuscular Volume 96 FL (80-99) 96 FL (80-99) Mean Corpuscular Hemoglobin 31.2 PG (27.0-31.0) 31.6 PG (27.0-31.0) Mean Corpuscular Hemoglobin Concent 32.6 G/DL (32.0-36.0) 33.1 G/DL (32.0-36.0) Red Cell Distribution Width 12.3 % (11.6-14.8) 12.8 % (11.6-14.8) Platelet Count 230 K/UL (150-450) 247 K/UL (150-450) Mean Platelet Volume 6.5 FL (6.5-10.1) 6.0 FL (6.5-10.1) Neutrophils (%) (Auto) 75.6 % (45.0-75.0) 52.5 % (45.0-75.0) Lymphocytes (%) (Auto) 13.7 % (20.0-45.0) 25.9 % (20.0-45.0) Monocytes (%) (Auto) 8.4 % (1.0-10.0) 12.4 % (1.0-10.0) Eosinophils (%) (Auto) 1.6 % (0.0-3.0) 7.9 % (0.0-3.0) Basophils (%) (Auto) 0.8 % (0.0-2.0) 1.4 % (0.0-2.0) Sodium Level 136 mEQ/L (135-145) 143 mEQ/L (135-145) Potassium Level 4.2 mEQ/L (3.4-4.9) 4.1 mEQ/L (3.4-4.9) Chloride Level 101 mEQ/L (98-107) 108 mEQ/L (98-107) Carbon Dioxide Level 22 mEQ/L (20-30) 23 mEQ/L (20-30) Anion Gap 13 (5-15) 12 (5-15) Blood Urea Nitrogen 8 mg/dL (7-23) 9 mg/dL (7-23) Creatinine 0.8 mg/dL (0.5-0.9) 0.6 mg/dL (0.5-0.9) Estimat Glomerular Filtration Rate > 60 mL/min (>60) > 60 mL/min (>60) Glucose Level 97 mg/dL (74-106) 108 mg/dL (74-106) Calcium Level 8.6 mg/dL (8.6-10.2) 8.2 mg/dL (8.6-10.2) Vancomycin Level Trough 3.6 ug/mL (5.0-12.0) Laboratory Tests Test 12/23/16 01:10 12/23/16 01:15 Sodium Level 143 mEQ/L (135-145) Potassium Level 4.1 mEQ/L (3.4-4.9) Chloride Level 108 mEQ/L (98-107) H Carbon Dioxide Level 23 mEQ/L (20-30) Anion Gap 12 (5-15) Blood Urea Nitrogen 9 mg/dL (7-23) Creatinine 0.6 mg/dL (0.5-0.9) Estimat Glomerular Filtration Rate > 60 mL/min (>60) Glucose Level 108 mg/dL (74-106) H Calcium Level 8.2 mg/dL (8.6-10.2) L Vancomycin Level Trough 3.6 ug/mL (5.0-12.0) L Current Medications Medications (Trade) Dose Ordered Sig/Javier Route PRN Reason Start Time Stop Time Status Last Admin Dose Admin Acetaminophen (Tylenol) 650 mg Q4H PRN ORAL Mild Pain/FEVER 12/20/16 13:45 01/19/17 13:44 12/23/16 18:06 Al Hydroxide/Mg Hydroxide (Mylanta II) 30 ml Q6H PRN ORAL dyspepsia 12/20/16 13:45 01/19/17 13:44 Bisacodyl (Dulcolax) 10 mg HSPRN PRN RECTAL Constipation 12/20/16 13:45 01/19/17 13:44 Dextrose (Dextrose 50%) STAT PRN IV Hypoglycemia 12/20/16 13:45 01/19/17 13:44 Diphenhydramine HCl (Benadryl) 25 mg Q6H PRN ORAL Itching/Pruritis 12/20/16 13:45 01/19/17 13:44 Heparin Sodium (Porcine) (Heparin 5000 units/ml) 5,000 units EVERY 12 HOURS SUBQ 12/20/16 21:00 01/19/17 20:59 12/23/16 08:33 Lorazepam (Ativan 2mg/ml 1ml) 0.5 mg Q4H PRN IV For Anxiety 12/20/16 13:45 12/27/16 13:44 Magnesium Hydroxide (Mom) 30 ml HSPRN PRN ORAL Constipation 12/20/16 13:45 01/19/17 13:44 Morphine Sulfate (Morphine Sulfate) 2 mg Q4HR PRN IVP Moderate Pain (Pain Scale 4-6) 12/20/16 13:45 12/27/16 13:44 Morphine Sulfate (Morphine Sulfate) 4 mg Q4HR PRN IVP Severe Pain (Pain Scale 7-10) 12/20/16 13:45 12/27/16 13:44 Ondansetron HCl (Zofran) 4 mg Q6H PRN IVP Nausea & Vomiting 12/20/16 13:45 01/19/17 13:44 12/20/16 19:44 Piperacillin Sod/ Tazobactam Sod/ Sodium Chloride (Zosyn/Sodium Chloride) 110 ml @ 27.5 mls/hr Q8HR IVPB 12/20/16 22:00 12/27/16 21:59 12/23/16 13:46 Polyethylene Glycol (Miralax) 17 gm HSPRN PRN ORAL Constipation 12/20/16 13:45 01/19/17 13:44 Ranitidine HCl 150 mg 150 mg TWICE A DAY ORAL 12/22/16 18:00 01/21/17 17:59 12/23/16 18:06 Sodium Chloride (Sodium Chloride 1000ml bag) 1,000 ml @ 100 mls/hr Q10H IVLG 12/20/16 18:00 01/19/17 17:59 12/23/16 18:06 Temazepam (Restoril) 15 mg HSPRN PRN ORAL Insomnia 12/20/16 13:45 12/27/16 13:44 12/21/16 21:41 Vancomycin HCl 1 ea 1 ea DAILY PRN MISC Per rx protocol 12/20/16 13:45 01/19/17 13:44 Vancomycin HCl/ Dextrose (Vancomycin/D5W) 275 ml @ 183.708 mls/hr Q12H IVPB 12/23/16 12:00 12/28/16 11:59 12/23/16 11:48 ZULEMA NATHAN 14, 2017 21:04
[2016-12-24] MEDS: Vancomycin 1gm in D5W 275ml IVPB SCH ×2
[2016-12-24 00:55] VITALS: BP 103/60
[2016-12-24 04:00] VITALS: BP 107/69
[2016-12-24] MEDS: Piperacillin/Tazobactam 3.375 GM in NS 110 ML IVPB SCH (05:51)
[2016-12-24 08:00] VITALS: BP 106/76
[2016-12-24] MEDS: Heparin 5000 units/ml inj SUBQ SCH (08:13)
[2016-12-24] MEDS ORDERED: AUGMENTIN 875-1 EAC1 ORAL (09:53)
[2016-12-24] MEDS ORDERED: DOXYCYCLINE MO100 MG ORAL (09:56)
== END 2016-12-24 11:11 | disposition home or self-care (01) | DRG 603 ==
LOC: EMR 13:46 → 3E 14:00 → EDBEDREQ 16:46
DX: L03.116 Cellulitis of left lower limb (principal); D64.9 Anemia, unspecified
CPT/HCPCS: 36415; 36569; 76937; 80048; 80053; 80202; 85007; 85025; 85610; 85730; 87040; 87070; 87205; J2405